=== PATIENT | male | born 1995 ===

== ENCOUNTER 2019-03-03 09:09 | Inpatient (IN) | payer OTHER ==
[2019-03-03] MEDS ORDERED: SODIUM CHLORIDE 0.9% 1000 ML 1,000 ML IV ONE (09:58)
[2019-03-03] MEDS ORDERED: PANTOPRAZOLE 40 MG INJ IV ONE (09:58)
[2019-03-03] MEDS ORDERED: ONDANSETRON 4 MG/2 ML INJ IV ONE (09:58)
[2019-03-03] MEDS ORDERED: MORPHINE 4 MG/1 ML INJ IV ONE (09:58)
[2019-03-03 10:24] LABS: Hematocrit 38.5 % (35.5-45.6); Mean Corpuscular HGB Conc 34 % (32-34); Mean Corpuscular Volume 79 fl (84-94); Platelet Count 261 K/mm3 (140-440); Red Blood Count 4.91 M/mm3 (3.65-5.03); Red Cell Distribution Width 13.9 % (13.2-15.2)
[2019-03-03 10:24] LABS: Bilirubin,Urine NEG (Negative); Blood,Urine NEG (Negative); Color,Urine Straw (Yellow); Urobilinogen,Urine < 2.0 mg/dL (<2.0); WBC,Urine < 1.0 /HPF (0.0-6.0)
--- NOTE | 2019-03-03 10:28 | Emergency Department Report ---
ED Abdominal Pain HPI - General Chief Complaint: Nausea/Vomiting/Diarrhea Stated Complaint: N/V/UPPER STOMACH PAIN Time Seen by Provider: 03/03/19 09:52 Source: patient Mode of arrival: Ambulatory Limitations: Language Barrier - History of Present Illness Initial Comments: Patient is a 23-year-old male presents emergency room with complaints of epigastric abdominal pain that began 2 days ago. He has associated nausea, vomiting, diarrhea. He denies any fever, chills, hematochezia, pus in the stool, hematemesis, any other symptoms. He denies any past medical history or allergies medications. He denies any alcohol use. Maldivian interpretation by patients caregiver Severity scale (0 -10): 10 - Related Data Allergies Allergy/AdvReac Type Severity Reaction Status Date / Time No Known Allergies Allergy Unverified 03/03/19 09:13 ED Review of Systems ROS: Stated complaint: N/V/UPPER STOMACH PAIN Other details as noted in HPI Comment: All other systems reviewed and negative ED Past Medical Hx - Past Medical History Previous Medical History?: No - Social History Smoking Status: Never Smoker ED Physical Exam - General Limitations: No Limitations General appearance: alert, other (appears to be in mild amount of pain and pale) - Head Head exam: Present: atraumatic, normocephalic - Eye Eye exam: Present: normal appearance - ENT ENT exam: Present: mucous membranes moist - Respiratory Respiratory exam: Present: normal lung sounds bilaterally. Absent: respiratory distress, wheezes, rales, rhonchi, stridor, chest wall tenderness, accessory muscle use, decreased breath sounds, prolonged expiratory - Cardiovascular Cardiovascular Exam: Present: regular rate, normal rhythm, normal heart sounds. Absent: systolic murmur, diastolic murmur, rubs, gallop - GI/Abdominal GI/Abdominal exam: Present: soft, tenderness (epigastric, mild LUQ), normal bowel sounds. Absent: distended, guarding, rebound, rigid - Neurological Exam Neurological exam: Present: alert, oriented X3 - Psychiatric Psychiatric exam: Present: normal affect, normal mood - Skin Skin exam: Present: warm, dry, intact ED Course Vital Signs 03/03/19 03/03/19 09:15 12:35 Temperature 98.3 F Pulse Rate 63 Respiratory 18 18 Rate Blood Pressure 170/91 O2 Sat by Pulse 97 97 Oximetry - Reevaluation(s) Reevaluation #1: 03/03/19 11:[address] to make sure patients CT got sent over to radiology, they confirmed it was sent, states that the radiologist is reading it now - Consultations Consultation #1: 03/03/19 12:[address] Kwon, hospitalist, he states he will call back 03/03/19 12:[address] Kwon, hospitalist, he states to consult bathhouse keeper who did his biopsy Dr. Dodson Consultation #2: 03/03/19 12:[address] Emilio Garcia, nephrology who agrees pt needs to be admitted due to worsening renal function and acidosis, states pt could need possible dialysis, will consult on patient while admitted in the hospital 03/03/19 12:[address] Larry, nephrology who states pt never followed with him, advised to consult campaign consultant bathhouse keeper 03/03/19 12:[address] Dean Knowles, who states pt needs dialysis, advised for pt to have permacath or vascular catheter placed and he will consult on patient Consultation #3: 03/03/19 13:[address] Kwon, hospitalist regarding pt, will accept and resume care of patient, will admit to hospital, advised for me to consult vascular surgery ED Medical Decision Making - Lab Data Result diagrams: 03/03/19 09:48 03/03/19 09:54 Lab Results 03/03/19 03/03/19 03/03/19 Range/Units 09:48 09:54 09:54 WBC 12.3 H (4.5-11.0) K/mm3 RBC 4.91 (3.65-5.03) M/mm3 Hgb 13.0 (11.8-15.2) gm/dl Hct 38.5 (35.5-45.6) % MCV 79 L (84-94) fl MCH 26 L (28-32) pg MCHC 34 (32-34) % RDW 13.9 (13.2-15.2) % Plt Count 261 (140-440) K/mm3 Add Manual Diff Complete Total Counted 100 Seg Neutrophils % Plastics Nurse Seg Neuts % (Manual) 95.0 H (40.0-70.0) % Band Neutrophils % 0 % Lymphocytes % (Manual) 3.0 L (13.4-35.0) % Reactive Lymphs % (Man) 0 % Monocytes % (Manual) 1.0 (0.0-7.3) % Eosinophils % (Manual) 0 (0.0-4.3) % Basophils % (Manual) 1.0 (0.0-1.8) % Metamyelocytes % 0 % Myelocytes % 0 % Promyelocytes % 0 % Blast Cells % 0 % Nucleated RBC % Not Reportable Seg Neutrophils # Man 11.7 H (1.8-7.7) K/mm3 Band Neutrophils # 0.0 K/mm3 Lymphocytes # (Manual) 0.4 L (1.2-5.4) K/mm3 Abs React Lymphs (Man) 0.0 K/mm3 Monocytes # (Manual) 0.1 (0.0-0.8) K/mm3 Eosinophils # (Manual) 0.0 (0.0-0.4) K/mm3 Basophils # (Manual) 0.1 (0.0-0.1) K/mm3 Metamyelocytes # 0.0 K/mm3 Myelocytes # 0.0 K/mm3 Promyelocytes # 0.0 K/mm3 Blast Cells # 0.0 K/mm3 WBC Morphology Not Reportable Hypersegmented Neuts Not Reportable Hyposegmented Neuts Not Reportable Hypogranular Neuts Not Reportable Smudge Cells Not Reportable Toxic Granulation Not Reportable Toxic Vacuolation Not Reportable Dohle Bodies Not Reportable Pelger-Huet Anomaly Not Reportable Eunice Rods Not Reportable Platelet Estimate Consistent w auto Clumped Platelets Not Reportable Plt Clumps, EDTA Not Reportable Large Platelets Not Reportable Giant Platelets Not Reportable Platelet Satelliting Not Reportable Plt Morphology Comment Not Reportable RBC Morphology Normal Dimorphic RBCs Not Reportable Polychromasia Not Reportable Hypochromasia Not Reportable Poikilocytosis Not Reportable Anisocytosis Not Reportable Microcytosis Not Reportable Macrocytosis Not Reportable Spherocytes Not Reportable Pappenheimer Bodies Not Reportable Sickle Cells Not Reportable Target Cells Not Reportable Tear Drop Cells Not Reportable Ovalocytes Not Reportable Helmet Cells Not Reportable Leonard-Glen Jean Bodies Not Reportable Jewell Rings Not Reportable Pollo Cells Not Reportable Bite Cells Not Reportable Crenated Cell Not Reportable Elliptocytes Not Reportable Acanthocytes (Spur) Not Reportable Rouleaux Not Reportable Hemoglobin C Crystals Not Reportable Schistocytes Not Reportable Malaria parasites Not Reportable Jose Alejandro Bodies Not Reportable Hem Pathologist Commnt No Sodium 138 (137-145) mmol/L Potassium 3.8 (3.6-5.0) mmol/L Chloride 99.6 (98-107) mmol/L Carbon Dioxide 14 L (22-30) mmol/L Anion Gap 28 mmol/L BUN 88 H (9-20) mg/dL Creatinine 8.1 H (0.8-1.5) mg/dL Estimated GFR 8 ml/min BUN/Creatinine Ratio 11 % Glucose 131 H (75-100) mg/dL Calcium 7.7 L (8.4-10.2) mg/dL Phosphorus (2.5-4.5) mg/dL Magnesium (1.7-2.3) mg/dL Total Bilirubin 0.40 (0.1-1.2) mg/dL AST 10 (5-40) units/L ALT 15 (7-56) units/L Alkaline Phosphatase 132 H (35-129) units/L Total Creatine Kinase (55-170) units/L Total Protein 8.5 H (6.3-8.2) g/dL Albumin 5.0 (3.9-5) g/dL Albumin/Globulin Ratio 1.4 % Lipase (13-60) units/L Urine Color Straw (Yellow) Urine Turbidity Clear (Clear) Urine pH 6.0 (5.0-7.0) Ur Specific Haughton 1.009 (1.003-1.030) Urine Protein >500 (Negative) mg/dL Urine Glucose (UA) 50 (Negative) mg/dL Urine Ketones Neg (Negative) mg/dL Urine Blood Neg (Negative) Urine Nitrite Neg (Negative) Urine Bilirubin Neg (Negative) Urine Urobilinogen < 2.0 (<2.0) mg/dL Ur Leukocyte Esterase Neg (Negative) Urine WBC (Auto) < 1.0 (0.0-6.0) /HPF Urine RBC (Auto) 1.0 (0.0-6.0) /HPF 03/03/19 03/03/19 Range/Units 09:54 09:54 WBC (4.5-11.0) K/mm3 RBC (3.65-5.03) M/mm3 Hgb (11.8-15.2) gm/dl Hct (35.5-45.6) % MCV (84-94) fl MCH (28-32) pg MCHC (32-34) % RDW (13.2-15.2) % Plt Count (140-440) K/mm3 Add Manual Diff Total Counted Seg Neutrophils % Seg Neuts % (Manual) (40.0-70.0) % Band Neutrophils % % Lymphocytes % (Manual) (13.4-35.0) % Reactive Lymphs % (Man) % Monocytes % (Manual) (0.0-7.3) % Eosinophils % (Manual) (0.0-4.3) % Basophils % (Manual) (0.0-1.8) % Metamyelocytes % % Myelocytes % % Promyelocytes % % Blast Cells % % Nucleated RBC % Seg Neutrophils # Man (1.8-7.7) K/mm3 Band Neutrophils # K/mm3 Lymphocytes # (Manual) (1.2-5.4) K/mm3 Abs React Lymphs (Man) K/mm3 Monocytes # (Manual) (0.0-0.8) K/mm3 Eosinophils # (Manual) (0.0-0.4) K/mm3 Basophils # (Manual) (0.0-0.1) K/mm3 Metamyelocytes # K/mm3 Myelocytes # K/mm3 Promyelocytes # K/mm3 Blast Cells # K/mm3 WBC Morphology Hypersegmented Neuts Hyposegmented Neuts Hypogranular Neuts Smudge Cells Toxic Granulation Toxic Vacuolation Dohle Bodies Pelger-Huet Anomaly Eunice Rods Platelet Estimate Clumped Platelets Plt Clumps, EDTA Large Platelets Giant Platelets Platelet Satelliting Plt Morphology Comment RBC Morphology Dimorphic RBCs Polychromasia Hypochromasia Poikilocytosis Anisocytosis Microcytosis Macrocytosis Spherocytes Pappenheimer Bodies Sickle Cells Target Cells Tear Drop Cells Ovalocytes Helmet Cells Leonard-Glen Jean Bodies Jewell Rings Pollo Cells Bite Cells Crenated Cell Elliptocytes Acanthocytes (Spur) Rouleaux Hemoglobin C Crystals Schistocytes Malaria parasites Jose Alejandro Bodies Hem Pathologist Commnt Sodium (137-145) mmol/L Potassium (3.6-5.0) mmol/L Chloride (98-107) mmol/L Carbon Dioxide (22-30) mmol/L Anion Gap mmol/L BUN (9-20) mg/dL Creatinine (0.8-1.5) mg/dL Estimated GFR ml/min BUN/Creatinine Ratio % Glucose (75-100) mg/dL Calcium (8.4-10.2) mg/dL Phosphorus 4.80 H (2.5-4.5) mg/dL Magnesium 1.60 L (1.7-2.3) mg/dL Total Bilirubin (0.1-1.2) mg/dL AST (5-40) units/L ALT (7-56) units/L Alkaline Phosphatase (35-129) units/L Total Creatine Kinase 229 H (55-170) units/L Total Protein (6.3-8.2) g/dL Albumin (3.9-5) g/dL Albumin/Globulin Ratio % Lipase 42 (13-60) units/L Urine Color (Yellow) Urine Turbidity (Clear) Urine pH (5.0-7.0) Ur Specific Haughton (1.003-1.030) Urine Protein (Negative) mg/dL Urine Glucose (UA) (Negative) mg/dL Urine Ketones (Negative) mg/dL Urine Blood (Negative) Urine Nitrite (Negative) Urine Bilirubin (Negative) Urine Urobilinogen (<2.0) mg/dL Ur Leukocyte Esterase (Negative) Urine WBC (Auto) (0.0-6.0) /HPF Urine RBC (Auto) (0.0-6.0) /HPF - Radiology Data Radiology results: report reviewed CHEST 2 VIEWS INDICATION: uremia, elevated WBC. COMPARISON: None. FINDINGS: Support devices: None. Heart: Within normal limits. Lungs/Pleura: No acute air space or interstitial disease. No significant pleural effusion. IMPRESSION: No acute findings. Signer Name: Eladio Chua MD Signed: 03/03/2019 11:29 AM Workstation Name: [id number] Transcribed By: ES Dictated By: Eladio Chua MD Electronically Authenticated By: Eladio Chua MD Signed Date/Time: 03/03/[address] ABDOMEN AND PELVIS WITHOUT CONTRAST HISTORY: Epigastric pain with nausea and vomiting. COMPARISON: 11/14/2018 TECHNIQUE: Routine abdominal and pelvic CT exam performed without contrast. Lack of intravenous contrast limits evaluation of the vascular and solid organs.. All CT scans at this location are performed using CT dose reduction for ALARA by means of automated exposure control. FINDINGS: CT ABDOMEN: Lung Bases: Clear. Liver: Normal. Biliary: Gallbladder and bile ducts. Spleen: Normal. Pancreas: Abnormal. Adrenals: Normal. Kidneys: Small with nondilated renal collecting systems and ureters. No urinary calculi. Lymphatics: No lymphadenopathy. Vasculature: No significant abnormality. Bowel/Peritoneum: A single loop of moderately dilated fluid-filled small bowel in the left upper quadrant. The rest of the small bowel is normal. Normal colon. Numerous tiny calculi in the appendix but no signs of acute appendicitis. No free air and no ascites. CT PELVIC: : No significant abnormality. Lymphatics: No lymphadenopathy. Osseous Structures: No aggressive appearing osseous lesions. Additional Findings: None IMPRESSION: 1. A mild focal ileus of the small bowel in the left upper quadrant. No bowel obstruction or signs of perforation. 2. Tiny calculi of the appendix but no signs of acute appendicitis. 3. No other explanation for abdominal pain. Signer Name: Wesly Mcnamara MD Signed: 03/03/2019 11:49 AM Workstation Name: [id number] Transcribed By: REF Dictated By: WESLY MCNAMARA MD Electronically Authenticated By: WESLY MCNAMARA MD Signed Date/Time: 03/03/19 1149 DD/ 1139 TD/TT: - Medical Decision Making Patient is a 23-year-old male presents emergency room with complaints of epigastric abdominal pain that began 2 days ago. He has associated nausea, vomiting, diarrhea. He denies any fever, chills, hematochezia, pus in the stool, hematemesis, any other symptoms. He denies any past medical history or allergies medications. He denies any alcohol use. vitals with elevated blood pressure, otherwise normal. Labs significant for creatinine 8.1, BUN 88, hypocalcemia 7.7, bicarb 14, magnesium 1.6, phosphorus 4.8. CT abd pelvis without contrast: 1. A mild focal ileus of the small bowel in the left upper quadrant. No bowel obstruction or signs of perforation. 2. Tiny calculi of the appendix but no signs of acute appendicitis. 3. No other explanation for abdominal pain. Discussed case with Dr. Ricks who recommended doing a chest x-ray due to uremia and admitted patient to the hospital. CXR: No acute findings. discussed case with Dr. Dean Knowles, nephrology who recommended emergent dialysis and to have vascular place a permacath or vascular cath. Patient was sent to the [facility] to receive catheter. spoke with Dr. Kwon, hospitalist regarding pt, will accept and resume care of patient, will admit to hospital, - Differential Diagnosis pancreatitis, acute on chronic renal failure, gastritis, PUD, cholecystitis Critical care attestation.: If time is entered above; I have spent that time in minutes in the direct care of this critically ill patient, excluding procedure time. ED Disposition Clinical Impression: Metabolic acidosis, Nausea vomiting and diarrhea, Ileus Acute on chronic renal failure Qualifiers: Acute renal failure type: unspecified Chronic kidney disease stage: stage 5, not on chronic dialysis Qualified Code(s): N17.9 - Acute kidney failure, unspecified Abdominal pain Qualifiers: Abdominal location: unspecified location Qualified Code(s): R10.9 - Unspecified abdominal pain Disposition: -09 OP ADMIT IP TO THIS HOSP Is pt being admited?: Yes Does the pt Need Aspirin: No Condition: Stable
[2019-03-03 10:31] LABS: Protein,Urine >500 mg/dL (Negative)
[2019-03-03 10:39] LABS: Calcium 7.7 mg/dL (8.4-10.2)
[2019-03-03 10:59] LABS: Eosinophils % (Manual) 0 % (0.0-4.3); Platelet Estimate Consistent w Auto; RBC Morphology Normal; Total Cells Counted 100
--- NOTE | 2019-03-03 11:34 | XRay Report ---
CHEST 2 VIEWS INDICATION: uremia, elevated WBC. COMPARISON: None. FINDINGS: Support devices: None. Heart: Within normal limits. Lungs/Pleura: No acute air space or interstitial disease. No significant pleural effusion. IMPRESSION: No acute findings. Signer Name: Eladio Chua MD Signed: 03/03/2019 11:29 AM Workstation Name: [id number]
--- NOTE | 2019-03-03 11:54 | Cat Scan Report ---
CT ABDOMEN AND PELVIS WITHOUT CONTRAST HISTORY: Epigastric pain with nausea and vomiting. COMPARISON: 11/14/2018 TECHNIQUE: Routine abdominal and pelvic CT exam performed without contrast. Lack of intravenous cont rast limits evaluation of the vascular and solid organs.. All CT scans at this location are performed using CT dose reduction for ALARA by means of automated exposure control. FINDINGS: CT ABDOMEN: Lung Bases: Clear. Liver: Normal. Biliary: Gallbladder and bile ducts. Spleen: Normal. Pancreas: Abnormal. Adrenals: Normal. Kidneys: Small with nondilated renal collecting systems and ureters. No urinary calculi. Lymphatics: No lymphadenopathy. Vasculature: No significant abnormality. Bowel/Peritoneum: A single loop of moderately dilated fluid-filled small bowel in the left upper quad rant. The rest of the small bowel is normal. Normal colon. Numerous tiny calculi in the appendix but no signs of acute appendicitis. No free air and no ascites. CT PELVIC: : No significant abnormality. Lymphatics: No lymphadenopathy. Osseous Structures: No aggressive appearing osseous lesions. Additional Findings: None IMPRESSION: 1. A mild focal ileus of the small bowel in the left upper quadrant. No bowel obstruction or signs of perforation. 2. Tiny calculi of the appendix but no signs of acute appendicitis. 3. No other explanation for abdominal pain. Signer Name: Sean Torres MD Signed: 03/03/2019 11:49 AM Workstation Name: [id number]
[2019-03-03] MEDS: CALCIUM CARBONATE 648 MG TAB PO ONE (12:46)
[2019-03-03] MEDS ORDERED: SODIUM CHLORIDE 0.9% 100 ML IV PRN ×2 (13:23→13:46)
[2019-03-03] MEDS ORDERED: MIDAZOLAM 2 MG/2 ML INJ ONE (13:39)
[2019-03-03] MEDS ORDERED: fentaNYL 100 MCG/2 ML INJ ONE (13:40)
[2019-03-03] MEDS ORDERED: HEPARIN/NS 5000 UNIT/500ML 500 ML IR ONE (13:40)
[2019-03-03] MEDS ORDERED: LIDOCAINE 1%/EPINEPHRINE 1:100,000 VIAL (20 ML) INFILTRATI ONE (13:41)
[2019-03-03] MEDS ORDERED: SODIUM CHLORIDE 0.9% 250ML 250 ML ONE (13:44)
--- NOTE | 2019-03-03 14:00 | Consultation ---
History of Present Illness - Reason for Consult Consult date: 03/03/19 Renal Failure - History of Present Illness HPI: 23yo male presents to the ED with worsening abdominal pain with associated N/V/D and labs that demonstrate worsening renal function. Patient diagnosed with CKD approx. 1 month ago per patient with similar symptoms. We have been consulted to place dialysis catheter. ROS: as per HPI PMH: CKD PE: NAD, A&Ox3 non-labored respirations RRR no extremity edema neuro grossly intact extremities warm and well perfused Plan: We will place vascath for dialysis today Medications and Allergies Allergies Allergy/AdvReac Type Severity Reaction Status Date / Time No Known Allergies Allergy Unverified 03/03/19 09:13 Active Meds: Active Medications Calcium Carbonate/Glycine (Calcium Carbonate) 648 mg PO ONCE ONE Stop: 03/04/19 12:01 Last Admin: 03/03/19 12:46 Dose: 648 mg Documented by: Sodium Chloride (Nacl 0.9%) 100 mls @ 999 mls/hr IV ANGELY PRN PRN Reason: Hypotension Sodium Chloride (Nacl 0.9%) 100 mls @ 999 mls/hr IV ANGELY PRN PRN Reason: Hypotension Exam - Constitutional Vitals: Temp Pulse Resp BP Pulse Ox 98.3 F 63 18 170/91 97 03/03/19 09:15 03/03/19 09:15 03/03/19 09:15 03/03/19 09:15 03/03/19 09:15 Results - Labs CBC & Chem 7: 03/03/19 09:48 03/03/19 09:54 Labs: Abnormal lab results 03/03/19 03/03/19 03/03/19 Range/Units 09:48 09:54 09:54 WBC 12.3 H (4.5-11.0) K/mm3 MCV 79 L (84-94) fl MCH 26 L (28-32) pg Seg Neuts % (Manual) 95.0 H (40.0-70.0) % Lymphocytes % (Manual) 3.0 L (13.4-35.0) % Seg Neutrophils # Man 11.7 H (1.8-7.7) K/mm3 Lymphocytes # (Manual) 0.4 L (1.2-5.4) K/mm3 Carbon Dioxide 14 L (22-30) mmol/L BUN 88 H (9-20) mg/dL Creatinine 8.1 H (0.8-1.5) mg/dL Glucose 131 H (75-100) mg/dL Calcium 7.7 L (8.4-10.2) mg/dL Phosphorus (2.5-4.5) mg/dL Magnesium (1.7-2.3) mg/dL Alkaline Phosphatase 132 H (35-129) units/L Total Creatine Kinase 229 H (55-170) units/L Total Protein 8.5 H (6.3-8.2) g/dL 03/03/19 Range/Units 09:54 WBC (4.5-11.0) K/mm3 MCV (84-94) fl MCH (28-32) pg Seg Neuts % (Manual) (40.0-70.0) % Lymphocytes % (Manual) (13.4-35.0) % Seg Neutrophils # Man (1.8-7.7) K/mm3 Lymphocytes # (Manual) (1.2-5.4) K/mm3 Carbon Dioxide (22-30) mmol/L BUN (9-20) mg/dL Creatinine (0.8-1.5) mg/dL Glucose (75-100) mg/dL Calcium (8.4-10.2) mg/dL Phosphorus 4.80 H (2.5-4.5) mg/dL Magnesium 1.60 L (1.7-2.3) mg/dL Alkaline Phosphatase (35-129) units/L Total Creatine Kinase (55-170) units/L Total Protein (6.3-8.2) g/dL
[2019-03-03] MEDS: HEPARIN 10,000 UNITS/10 ML VIAL ONE ×3 (14:15→14:17)
--- NOTE | 2019-03-03 14:35 | Post Operative Note ---
Pre-op diagnosis: Acute Renal Failure Post-op diagnosis: same Procedure: Right IJ Vascath Insertion Monitored Conscious Sedation Anesthesia: MAC, local Surgeon: KEITH SRINIVASAN Estimated blood loss: none Pathology: none Condition: stable Disposition: floor
--- NOTE | 2019-03-03 15:07 | Operative Report ---
STAFF SURGEON: Dr. Christiano Barton. PREOPERATIVE DIAGNOSIS: Acute renal failure. POSTOPERATIVE DIAGNOSIS: Acute renal failure. PROCEDURE PERFORMED: 1. Right IJ Vas-Cath insertion. 2. Monitored conscious sedation for 15 minutes. COMPLICATIONS: None. ESTIMATED BLOOD LOSS: Less than 10 mL. INDICATIONS FOR PROCEDURE: This is a 23-year-old gentleman who presents with a deteriorating renal function and worsening acidosis and the patient's current clinical condition is concerning for a potential need for dialysis initiation, therefore vascular consultation was obtained for a temporary dialysis catheter placement. The patient was explained the risks, benefits, alternatives of the procedure, expressed understanding and wished to proceed. DESCRIPTION OF PROCEDURE: After appropriate consent was obtained, the patient was brought back to the cathode builder, placed on the table in a supine position. The right neck was prepped and draped in the usual sterile fashion with ChloraPrep. Appropriate time-out performed indicating the correct patient, procedure, and site of procedure. I then began the intervention by obtaining percutaneous access of the internal jugular vein, used a micropuncture technique under ultrasound guidance so as to obtain access. Needle was exchanged for a micropuncture sheath. Using Seldinger technique, we then proceeded to place a stiff J wire into the inferior vena cava. The micropuncture sheath was removed. The access site was dilated appropriately. Then, a 15 cm precurved Vas-Cath was then placed over the wire into the level of the SVC right atrial junction. The wire was removed. Both lumens jenise blood appropriately, were flushed with heparinized saline. Appropriate amount of heparin was placed in each port. Catheter was then sutured in place with a 3-0 nylon. Appropriate dressing was placed. The patient tolerated the procedure well, emerged from the conscious sedation and was sent to recovery in stable condition. JOB# [id number] LEANNE/MIKE
[2019-03-03 16:23] LABS: Hepatitis B Surface Antigen Non-Reactive (Negative); Hepatitis C Virus Antibody Non-Reactive (NonReactive)
--- NOTE | 2019-03-03 16:48 | Consultation ---
History of Present Illness - Reason for Consult Consult date: 03/03/19 end stage renal disease Requesting physician: ADELIA QUINTANA - History of Present Illness This is a 23yo M with h/o IgA nephropathy, non-compliant with medical f/u now presenting to [facility] ER with complaints of epigastric abdominal pain that began 2 days ago. He has associated nausea, vomiting, diarrhea. He denies any fever, chills, hematochezia, pus in the stool, hematemesis, any other symptoms. Pt denies recent NSAIDs use IV contrast exposure. Labs showed elevated BUN/Cr at 88/8.1mg/dl along with e/o metabolic acidosis. renal consult is requested for management of ESRD/HD. History obtained by translation of pt's patient care nursing assistant Past History Past Medical History: ESRD Past Surgical History: Other (renal biopsy ) Social history: denies: smoking, alcohol abuse, prescription drug abuse, IV drug use Family history: no significant family history Medications and Allergies Allergies Allergy/AdvReac Type Severity Reaction Status Date / Time No Known Allergies Allergy Unverified 03/03/19 09:13 Active Meds: Active Medications Calcium Carbonate/Glycine (Calcium Carbonate) 648 mg PO ONCE ONE Stop: 03/04/19 12:01 Last Admin: 03/03/19 12:46 Dose: 648 mg Documented by: Sodium Chloride (Nacl 0.9%) 100 mls @ 999 mls/hr IV ANGELY PRN PRN Reason: Hypotension Sodium Chloride (Nacl 0.9%) 100 mls @ 999 mls/hr IV ANGELY PRN PRN Reason: Hypotension Review of Systems All systems: negative Constitutional: anorexia, fatigue, weakness, malaise Exam - Vital Signs Vital signs: Vital Signs Temp Pulse Resp BP Pulse Ox 98.3 F 63 18 170/91 97 03/03/19 09:15 03/03/19 09:15 03/03/19 09:15 03/03/19 09:15 03/03/19 09:15 - General Appearance General appearance: well-developed, well-nourished, appears stated age EENT: ATNC, PERRL, mucous membranes moist Neck: Present: neck supple Respiratory: Clear to Ascultation Heart: regular, S1S2 Gastrointestinal: Present: normoactive bowel sounds Integumentary: no rash Neurologic: no focal deficit, alert and oriented x3, strength 5/5, CN 3-12 intact Psychiatric: mood/affect appropriate, cooperative Results - Lab Results 03/03/19 09:48 03/03/19 09:54 Most recent lab results Calcium 7.7 mg/dL (8.4-10.2) L 03/03/19 09:54 Phosphorus 4.80 mg/dL (2.5-4.5) H 03/03/19 09:54 Magnesium 1.60 mg/dL (1.7-2.3) L 03/03/19 09:54 Assessment and Plan - Patient Problems (1) ESRD (end stage renal disease) Current Visit: Yes Status: Acute Plan to address problem: with uremic symptoms, vascular surgery consult for vascasth/permcath. Will arrange HD thereafter. (2) Metabolic acidosis Current Visit: Yes Status: Acute Plan to address problem: to be corrected with HD (3) Nausea vomiting and diarrhea Current Visit: Yes Status: Acute Plan to address problem: likely due to uremic symptoms in the setting of advanced renal failure/ESRD
[2019-03-03] MEDS ORDERED: oxyCODONE /ACETAMINOPHEN 5-325MG TAB PO PRN (19:37)
[2019-03-03] MEDS ORDERED: ACETAMINOPHEN 325 MG TAB PO PRN (19:37)
[2019-03-03] MEDS ORDERED: HYDROmorphone 1 MG/1 ML INJ IV PRN (19:37)
--- NOTE | 2019-03-03 19:37 | History and Physical Report ---
History of Present Illness Date of examination: 03/03/19 Date of admission: 03/03/19 13:01 Chief complaint: Abdominal pain 3 days Vomiting for 3 days History of present illness: 22-year-old Arabic-speaking male comes in for abdominal pain that began 2 days ago associated with nausea and vomiting. Vomited 3-4 times. Pain is about 6 on a scale of 1-10 intermittent in nature. Sharp. No exacerbating or precipitating factors. Patient does not have any history of renal failure or hypertension or any other medical problems. In the emergency room patient had a high creatinine level. Patient apparently had biopsy couple months ago and is not sure why he had a biopsy. No fever or chills. No recent travel. No weight loss. Not on any medications. Past Medical History None Surgical history None Family history noncontributory Social History Smoking Status: Never Smoker Review of Systems ROS: Stated complaint: N/V/UPPER STOMACH PAIN Other details as noted in HPI, Nausea vomiting and epigastric pain for 3-4 days All other systems reviewed and negative Past History Past Medical History: ESRD Past Surgical History: Other (renal biopsy ) Social history: denies: smoking, alcohol abuse, prescription drug abuse, IV drug use Family history: no significant family history Medications and Allergies Allergies Allergy/AdvReac Type Severity Reaction Status Date / Time No Known Allergies Allergy Unverified 03/03/19 09:13 Active Meds: Active Medications Calcium Carbonate/Glycine (Calcium Carbonate) 648 mg PO ONCE ONE Stop: 03/04/19 12:01 Last Admin: 03/03/19 12:46 Dose: 648 mg Documented by: Sodium Chloride (Nacl 0.9%) 100 mls @ 999 mls/hr IV ANGELY PRN PRN Reason: Hypotension Sodium Chloride (Nacl 0.9%) 100 mls @ 999 mls/hr IV ANGELY PRN PRN Reason: Hypotension Exam - Constitutional Vitals: Temp Pulse Resp BP Pulse Ox 98.1 F 61 16 171/99 98 03/03/19 19:18 03/03/19 19:18 03/03/19 19:18 03/03/19 19:18 03/03/19 19:18 General appearance: Present: no acute distress, well-nourished - EENT Eyes: Present: PERRL ENT: hearing intact, clear oral mucosa - Neck Neck: Present: supple, normal ROM - Respiratory Respiratory effort: normal Respiratory: bilateral: CTA - Cardiovascular Heart rate: 88 Rhythm: regular Heart Sounds: Present: S1 & S2. Absent: rub, click - Extremities Extremities: no ischemia, pulses intact ( and service), pulses symmetrical, No edema Peripheral Pulses: within normal limits - Abdominal General gastrointestinal: Present: soft, non-tender, non-distended, normal bowel sounds Localized gastrointestinal: surgical scar: diffuse Male genitourinary: Present: normal - Integumentary Integumentary: Present: clear, warm, dry - Musculoskeletal Musculoskeletal: gait normal, strength equal bilaterally - Psychiatric Psychiatric: appropriate mood/affect, intact judgment & insight - Neurologic Neurologic: CNII-XII intact, moves all extremities - Allied Health Allied health notes reviewed: nursing, case management Results - Labs CBC & Chem 7: 03/03/19 09:48 03/03/19 09:54 Labs: Laboratory Last Values WBC 12.3 K/mm3 (4.5-11.0) H 03/03/19 09:48 RBC 4.91 M/mm3 (3.65-5.03) 03/03/19 09:48 Hgb 13.0 gm/dl (11.8-15.2) 03/03/19 09:48 Hct 38.5 % (35.5-45.6) 03/03/19 09:48 MCV 79 fl (84-94) L 03/03/19 09:48 MCH 26 pg (28-32) L 03/03/19 09:48 MCHC 34 % (32-34) 03/03/19 09:48 RDW 13.9 % (13.2-15.2) 03/03/19 09:48 Plt Count 261 K/mm3 (140-440) 03/03/19 09:48 Add Manual Diff Complete 03/03/19 09:48 Total Counted 100 03/03/19 09:48 Seg Neutrophils % Radiographer Technologist 03/03/19 09:48 Seg Neuts % (Manual) 95.0 % (40.0-70.0) H 03/03/19 09:48 Band Neutrophils % 0 % 03/03/19 09:48 Lymphocytes % (Manual) 3.0 % (13.4-35.0) L 03/03/19 09:48 Reactive Lymphs % (Man) 0 % 03/03/19 09:48 Monocytes % (Manual) 1.0 % (0.0-7.3) 03/03/19 09:48 Eosinophils % (Manual) 0 % (0.0-4.3) 03/03/19 09:48 Basophils % (Manual) 1.0 % (0.0-1.8) 03/03/19 09:48 Metamyelocytes % 0 % 03/03/19 09:48 Myelocytes % 0 % 03/03/19 09:48 Promyelocytes % 0 % 03/03/19 09:48 Blast Cells % 0 % 03/03/19 09:48 Nucleated RBC % Not Reportable 03/03/19 09:48 Seg Neutrophils # Man 11.7 K/mm3 (1.8-7.7) H 03/03/19 09:48 Band Neutrophils # 0.0 K/mm3 03/03/19 09:48 Lymphocytes # (Manual) 0.4 K/mm3 (1.2-5.4) L 03/03/19 09:48 Abs React Lymphs (Man) 0.0 K/mm3 03/03/19 09:48 Monocytes # (Manual) 0.1 K/mm3 (0.0-0.8) 03/03/19 09:48 Eosinophils # (Manual) 0.0 K/mm3 (0.0-0.4) 03/03/19 09:48 Basophils # (Manual) 0.1 K/mm3 (0.0-0.1) 03/03/19 09:48 Metamyelocytes # 0.0 K/mm3 03/03/19 09:48 Myelocytes # 0.0 K/mm3 03/03/19 09:48 Promyelocytes # 0.0 K/mm3 03/03/19 09:48 Blast Cells # 0.0 K/mm3 03/03/19 09:48 WBC Morphology Not Reportable 03/03/19 09:48 Hypersegmented Neuts Not Reportable 03/03/19 09:48 Hyposegmented Neuts Not Reportable 03/03/19 09:48 Hypogranular Neuts Not Reportable 03/03/19 09:48 Smudge Cells Not Reportable 03/03/19 09:48 Toxic Granulation Not Reportable 03/03/19 09:48 Toxic Vacuolation Not Reportable 03/03/19 09:48 Dohle Bodies Not Reportable 03/03/19 09:48 Pelger-Huet Anomaly Not Reportable 03/03/19 09:48 Eunice Rods Not Reportable 03/03/19 09:48 Platelet Estimate Consistent w auto 03/03/19 09:48 Clumped Platelets Not Reportable 03/03/19 09:48 Plt Clumps, EDTA Not Reportable 03/03/19 09:48 Large Platelets Not Reportable 03/03/19 09:48 Giant Platelets Not Reportable 03/03/19 09:48 Platelet Satelliting Not Reportable 03/03/19 09:48 Plt Morphology Comment Not Reportable 03/03/19 09:48 RBC Morphology Normal 03/03/19 09:48 Dimorphic RBCs Not Reportable 03/03/19 09:48 Polychromasia Not Reportable 03/03/19 09:48 Hypochromasia Not Reportable 03/03/19 09:48 Poikilocytosis Not Reportable 03/03/19 09:48 Anisocytosis Not Reportable 03/03/19 09:48 Microcytosis Not Reportable 03/03/19 09:48 Macrocytosis Not Reportable 03/03/19 09:48 Spherocytes Not Reportable 03/03/19 09:48 Pappenheimer Bodies Not Reportable 03/03/19 09:48 Sickle Cells Not Reportable 03/03/19 09:48 Target Cells Not Reportable 03/03/19 09:48 Tear Drop Cells Not Reportable 03/03/19 09:48 Ovalocytes Not Reportable 03/03/19 09:48 Helmet Cells Not Reportable 03/03/19 09:48 Leonard-Girard Bodies Not Reportable 03/03/19 09:48 [place] Rings Not Reportable 03/03/19 09:48 [place] Cells Not Reportable 03/03/19 09:48 Bite Cells Not Reportable 03/03/19 09:48 Crenated Cell Not Reportable 03/03/19 09:48 Elliptocytes Not Reportable 03/03/19 09:48 Acanthocytes (Spur) Not Reportable 03/03/19 09:48 Rouleaux Not Reportable 03/03/19 09:48 Hemoglobin C Crystals Not Reportable 03/03/19 09:48 Schistocytes Not Reportable 03/03/19 09:48 Malaria parasites Not Reportable 03/03/19 09:48 Jose Alejandro Bodies Not Reportable 03/03/19 09:48 Hem Pathologist Commnt No 03/03/19 09:48 Sodium 138 mmol/L (137-145) 03/03/19 09:54 Potassium 3.8 mmol/L (3.6-5.0) 03/03/19 09:54 Chloride 99.6 mmol/L (98-107) 03/03/19 09:54 Carbon Dioxide 14 mmol/L (22-30) L 03/03/19 09:54 Anion Gap 28 mmol/L 03/03/19 09:54 BUN 88 mg/dL (9-20) H 03/03/19 09:54 Creatinine 8.1 mg/dL (0.8-1.5) H 03/03/19 09:54 Estimated GFR 8 ml/min 03/03/19 09:54 BUN/Creatinine Ratio 11 % 03/03/19 09:54 Glucose 131 mg/dL (75-100) H 03/03/19 09:54 Calcium 7.7 mg/dL (8.4-10.2) L 03/03/19 09:54 Phosphorus 4.80 mg/dL (2.5-4.5) H 03/03/19 09:54 Magnesium 1.60 mg/dL (1.7-2.3) L 03/03/19 09:54 Total Bilirubin 0.40 mg/dL (0.1-1.2) 03/03/19 09:54 AST 10 units/L (5-40) 03/03/19 09:54 ALT 15 units/L (7-56) 03/03/19 09:54 Alkaline Phosphatase 132 units/L (35-129) H 03/03/19 09:54 Total Creatine Kinase 229 units/L (55-170) H 03/03/19 09:54 Total Protein 8.5 g/dL (6.3-8.2) H 03/03/19 09:54 Albumin 5.0 g/dL (3.9-5) 03/03/19 09:54 Albumin/Globulin Ratio 1.4 % 03/03/19 09:54 Lipase 42 units/L (13-60) 03/03/19 09:54 Urine Color Straw (Yellow) 03/03/19 09:54 Urine Turbidity Clear (Clear) 03/03/19 09:54 Urine pH 6.0 (5.0-7.0) 03/03/19 09:54 Ur Specific [place] 1.009 (1.003-1.030) 03/03/19 09:54 Urine Protein >500 mg/dL (Negative) 03/03/19 09:54 Urine Glucose (UA) 50 mg/dL (Negative) 03/03/19 09:54 Urine Ketones Neg mg/dL (Negative) 03/03/19 09:54 Urine Blood Neg (Negative) 03/03/19 09:54 Urine Nitrite Neg (Negative) 03/03/19 09:54 Urine Bilirubin Neg (Negative) 03/03/19 09:54 Urine Urobilinogen < 2.0 mg/dL (<2.0) 03/03/19 09:54 Ur Leukocyte Esterase Neg (Negative) 03/03/19 09:54 Urine WBC (Auto) < 1.0 /HPF (0.0-6.0) 03/03/19 09:54 Urine RBC (Auto) 1.0 /HPF (0.0-6.0) 03/03/19 09:54 Hepatitis A IgM Ab Non-reactive (NonReactive) 03/03/19 Unknown Hep Bs Antigen Non-reactive (Negative) 03/03/19 Unknown Hep B Core IgM Ab Non-reactive (NonReactive) 03/03/19 Unknown Hepatitis C Antibody Non-reactive (NonReactive) 03/03/19 Unknown Short CBC 03/03/19 Range/Units 09:48 WBC 12.3 H (4.5-11.0) K/mm3 Hgb 13.0 (11.8-15.2) gm/dl Hct 38.5 (35.5-45.6) % Plt Count 261 (140-440) K/mm3 BMP 03/03/19 09:54 Sodium 138 Potassium 3.8 Chloride 99.6 Carbon Dioxide 14 L BUN 88 H Creatinine 8.1 H Glucose 131 H Calcium 7.7 L Cardiac Enzymes 03/03/19 Range/Units 09:54 Total Creatine Kinase 229 H (55-170) units/L Liver Function 03/03/19 Range/Units 09:54 Total Bilirubin 0.40 (0.1-1.2) mg/dL AST 10 (5-40) units/L ALT 15 (7-56) units/L Alkaline Phosphatase 132 H (35-129) units/L Albumin 5.0 (3.9-5) g/dL Urine 03/03/19 Range/Units 09:54 Urine Color Straw (Yellow) Urine pH 6.0 (5.0-7.0) Ur Specific [place] 1.009 (1.003-1.030) Urine Protein >500 (Negative) mg/dL Urine Glucose (UA) 50 (Negative) mg/dL - Imaging and Cardiology Chest x-ray: report reviewed (NAF) CT scan - abdomen: report reviewed Imaging and Cardiology: CT Abdomen IMPRESSION: 1. A mild focal ileus of the small bowel in the left upper quadrant. No bowel obstruction or signs of perforation. 2. Tiny calculi of the appendix but no signs of acute appendicitis. 3. No other explanation for abdominal pain. Assessment and Plan Advance Directives: Yes (Full code) VTE prophylaxis?: Chemical Plan of care discussed with patient/family: Yes - Patient Problems (1) ESRD (end stage renal disease) Current Visit: Yes Status: Chronic Plan to address problem: ) Patient needs vascath and hemodialysis Vascular surgery consulted and nephrology consulted Patient' states that he does not have legal status Case management involved regarding social issues (2) Metabolic acidosis Current Visit: Yes Status: Acute Plan to address problem: Secondary to end-stage renal disease Needs hemodialysis on a regular basis and nephrology follow-up (3) Abdominal pain Current Visit: Yes Status: Acute Qualifiers: Abdominal location: unspecified location Qualified Code(s): R10.9 - Unspecified abdominal pain Plan to address problem: IV Protonix and symptomatic treatment (4) DVT prophylaxis Current Visit: Yes Status: Acute Plan to address problem: On heparin 5000 every 12 and GI prophylaxis
[2019-03-03] MEDS: FAMOTIDINE 10 MG TAB PO SCH (22:53)
[2019-03-04] MEDS: ONDANSETRON 4 MG/2 ML INJ IV PRN ×3 (04:26→21:51)
[2019-03-04] MEDS ORDERED: SODIUM CHLORIDE 0.9% 100 ML IV PRN (08:05)
[2019-03-04] MEDS: FAMOTIDINE 10 MG TAB PO SCH ×2 (09:17→21:51)
[2019-03-04 09:38] LABS: Basophils % (Auto) 0.1 % (0.0-1.8); Hematocrit 36.9 % (35.5-45.6); Hemoglobin 12.6 gm/dl (11.8-15.2); Lymphocytes # (Auto) 0.9 K/mm3 (1.2-5.4); Lymphocytes % (Auto) 7.5 % (13.4-35.0); Mean Corpuscular HGB Conc 34 % (32-34); Mean Corpuscular Volume 78 fl (84-94); Monocytes # (Auto) 0.5 K/mm3 (0.0-0.8); Monocytes % (Auto) 4.8 % (0.0-7.3); Platelet Count 242 K/mm3 (140-440); Red Blood Count 4.74 M/mm3 (3.65-5.03); Red Cell Distribution Width 13.5 % (13.2-15.2)
[2019-03-04 10:05] LABS: Albumin 4.8 g/dL (3.9-5); Calcium 8.3 mg/dL (8.4-10.2)
[2019-03-04] MEDS ORDERED: SODIUM CHLORIDE*PRIMING MACHINE ONLY FOR DIALYSIS MC ONE (10:52)
--- NOTE | 2019-03-04 11:16 | Progress Note ---
Assessment and Plan Assessment and plan: New ESRD on HD -Status post vascath placement -Nephrology following New hypertension -Patient started on Amlodipine, will adjust as needed Metabolic acidosis -Secondary to the CKD -Level improving, will monitor Hypokalemia -We'll monitor level Hypomagnesemia -We'll monitor level Leukocytosis -Likely reactive, improving -Ua neg DVT prophylaxis with heparin Disposition: Patient will need outpatient hemodialysis chair, wrapper caser notified. History Interval history: Patient reports feeling better today. He denies current abdominal pain, nausea or vomiting. Hospitalist Physical - Constitutional Vitals: Temp Pulse Resp BP Pulse Ox 97.9 F 77 17 157/93 99 03/04/19 05:45 03/04/19 05:45 03/04/19 05:45 03/04/19 05:45 03/04/19 05:45 General appearance: Present: no acute distress, well-nourished - EENT Eyes: Present: PERRL, EOM intact ENT: hearing intact, clear oral mucosa - Neck Neck: Present: supple - Respiratory Respiratory effort: normal Respiratory: bilateral: CTA - Cardiovascular Rhythm: regular Heart Sounds: Present: S1 & S2 - Extremities Extremities: No edema - Abdominal General gastrointestinal: soft, non-tender, normal bowel sounds - Integumentary Integumentary: Present: warm, dry - Psychiatric Psychiatric: appropriate mood/affect - Neurologic Neurologic: CNII-XII intact Results - Labs CBC & Chem 7: 03/04/19 08:57 03/04/19 08:57 Labs: Laboratory Last Values WBC 11.4 K/mm3 (4.5-11.0) H 03/04/19 08:57 RBC 4.74 M/mm3 (3.65-5.03) 03/04/19 08:57 Hgb 12.6 gm/dl (11.8-15.2) 03/04/19 08:57 Hct 36.9 % (35.5-45.6) 03/04/19 08:57 MCV 78 fl (84-94) L 03/04/19 08:57 MCH 27 pg (28-32) L 03/04/19 08:57 MCHC 34 % (32-34) 03/04/19 08:57 RDW 13.5 % (13.2-15.2) 03/04/19 08:57 Plt Count 242 K/mm3 (140-440) 03/04/19 08:57 Lymph % (Auto) 7.5 % (13.4-35.0) L 03/04/19 08:57 Morgan % (Auto) 4.8 % (0.0-7.3) 03/04/19 08:57 Eos % (Auto) 0.0 % (0.0-4.3) 03/04/19 08:57 Baso % (Auto) 0.1 % (0.0-1.8) 03/04/19 08:57 Lymph # 0.9 K/mm3 (1.2-5.4) L 03/04/19 08:57 Morgan # 0.5 K/mm3 (0.0-0.8) 03/04/19 08:57 Eos # 0.0 K/mm3 (0.0-0.4) 03/04/19 08:57 Baso # 0.0 K/mm3 (0.0-0.1) 03/04/19 08:57 Add Manual Diff Complete 03/03/19 09:48 Total Counted 100 03/03/19 09:48 Seg Neutrophils % 87.6 % (40.0-70.0) H 03/04/19 08:57 Seg Neuts % (Manual) 95.0 % (40.0-70.0) H 03/03/19 09:48 Band Neutrophils % 0 % 03/03/19 09:48 Lymphocytes % (Manual) 3.0 % (13.4-35.0) L 03/03/19 09:48 Reactive Lymphs % (Man) 0 % 03/03/19 09:48 Monocytes % (Manual) 1.0 % (0.0-7.3) 03/03/19 09:48 Eosinophils % (Manual) 0 % (0.0-4.3) 03/03/19 09:48 Basophils % (Manual) 1.0 % (0.0-1.8) 03/03/19 09:48 Metamyelocytes % 0 % 03/03/19 09:48 Myelocytes % 0 % 03/03/19 09:48 Promyelocytes % 0 % 03/03/19 09:48 Blast Cells % 0 % 03/03/19 09:48 Nucleated RBC % Not Reportable 03/03/19 09:48 Seg Neutrophils # 10.0 K/mm3 (1.8-7.7) H 03/04/19 08:57 Seg Neutrophils # Man 11.7 K/mm3 (1.8-7.7) H 03/03/19 09:48 Band Neutrophils # 0.0 K/mm3 03/03/19 09:48 Lymphocytes # (Manual) 0.4 K/mm3 (1.2-5.4) L 03/03/19 09:48 Abs React Lymphs (Man) 0.0 K/mm3 03/03/19 09:48 Monocytes # (Manual) 0.1 K/mm3 (0.0-0.8) 03/03/19 09:48 Eosinophils # (Manual) 0.0 K/mm3 (0.0-0.4) 03/03/19 09:48 Basophils # (Manual) 0.1 K/mm3 (0.0-0.1) 03/03/19 09:48 Metamyelocytes # 0.0 K/mm3 03/03/19 09:48 Myelocytes # 0.0 K/mm3 03/03/19 09:48 Promyelocytes # 0.0 K/mm3 03/03/19 09:48 Blast Cells # 0.0 K/mm3 03/03/19 09:48 WBC Morphology Not Reportable 03/03/19 09:48 Hypersegmented Neuts Not Reportable 03/03/19 09:48 Hyposegmented Neuts Not Reportable 03/03/19 09:48 Hypogranular Neuts Not Reportable 03/03/19 09:48 Smudge Cells Not Reportable 03/03/19 09:48 Toxic Granulation Not Reportable 03/03/19 09:48 Toxic Vacuolation Not Reportable 03/03/19 09:48 Dohle Bodies Not Reportable 03/03/19 09:48 Pelger-Huet Anomaly Not Reportable 03/03/19 09:48 Eunice Rods Not Reportable 03/03/19 09:48 Platelet Estimate Consistent w auto 03/03/19 09:48 Clumped Platelets Not Reportable 03/03/19 09:48 Plt Clumps, EDTA Not Reportable 03/03/19 09:48 Large Platelets Not Reportable 03/03/19 09:48 Giant Platelets Not Reportable 03/03/19 09:48 Platelet Satelliting Not Reportable 03/03/19 09:48 Plt Morphology Comment Not Reportable 03/03/19 09:48 RBC Morphology Normal 03/03/19 09:48 Dimorphic RBCs Not Reportable 03/03/19 09:48 Polychromasia Not Reportable 03/03/19 09:48 Hypochromasia Not Reportable 03/03/19 09:48 Poikilocytosis Not Reportable 03/03/19 09:48 Anisocytosis Not Reportable 03/03/19 09:48 Microcytosis Not Reportable 03/03/19 09:48 Macrocytosis Not Reportable 03/03/19 09:48 Spherocytes Not Reportable 03/03/19 09:48 Pappenheimer Bodies Not Reportable 03/03/19 09:48 Sickle Cells Not Reportable 03/03/19 09:48 Target Cells Not Reportable 03/03/19 09:48 Tear Drop Cells Not Reportable 03/03/19 09:48 Ovalocytes Not Reportable 03/03/19 09:48 Helmet Cells Not Reportable 03/03/19 09:48 Leonard-Beckwourth Bodies Not Reportable 03/03/19 09:48 [place] Rings Not Reportable 03/03/19 09:48 [place] Cells Not Reportable 03/03/19 09:48 Bite Cells Not Reportable 03/03/19 09:48 Crenated Cell Not Reportable 03/03/19 09:48 Elliptocytes Not Reportable 03/03/19 09:48 Acanthocytes (Spur) Not Reportable 03/03/19 09:48 Rouleaux Not Reportable 03/03/19 09:48 Hemoglobin C Crystals Not Reportable 03/03/19 09:48 Schistocytes Not Reportable 03/03/19 09:48 Malaria parasites Not Reportable 03/03/19 09:48 Jose Alejandro Bodies Not Reportable 03/03/19 09:48 Hem Pathologist Commnt No 03/03/19 09:48 Sodium 138 mmol/L (137-145) 03/04/19 08:57 Potassium 3.5 mmol/L (3.6-5.0) L 03/04/19 08:57 Chloride 94.2 mmol/L (98-107) L 03/04/19 08:57 Carbon Dioxide 17 mmol/L (22-30) L 03/04/19 08:57 Anion Gap 30 mmol/L 03/04/19 08:57 BUN 59 mg/dL (9-20) H 03/04/19 08:57 Creatinine 7.0 mg/dL (0.8-1.5) H 03/04/19 08:57 Estimated GFR 10 ml/min 03/04/19 08:57 BUN/Creatinine Ratio 8 % 03/04/19 08:57 Glucose 132 mg/dL (75-100) H 03/04/19 08:57 Hemoglobin A1c 5.4 % (4-6) 03/03/19 09:48 Calcium 8.3 mg/dL (8.4-10.2) L 03/04/19 08:57 Phosphorus 4.80 mg/dL (2.5-4.5) H 03/03/19 09:54 Magnesium 1.60 mg/dL (1.7-2.3) L 03/03/19 09:54 Total Bilirubin 0.60 mg/dL (0.1-1.2) 03/04/19 08:57 AST 10 units/L (5-40) 03/04/19 08:57 ALT 13 units/L (7-56) 03/04/19 08:57 Alkaline Phosphatase 122 units/L (35-129) 03/04/19 08:57 Total Creatine Kinase 229 units/L (55-170) H 03/03/19 09:54 Total Protein 8.1 g/dL (6.3-8.2) 03/04/19 08:57 Albumin 4.8 g/dL (3.9-5) 03/04/19 08:57 Albumin/Globulin Ratio 1.5 % 03/04/19 08:57 Lipase 42 units/L (13-60) 03/03/19 09:54 Urine Color Straw (Yellow) 03/03/19 09:54 Urine Turbidity Clear (Clear) 03/03/19 09:54 Urine pH 6.0 (5.0-7.0) 03/03/19 09:54 Ur Specific [place] 1.009 (1.003-1.030) 03/03/19 09:54 Urine Protein >500 mg/dL (Negative) 03/03/19 09:54 Urine Glucose (UA) 50 mg/dL (Negative) 03/03/19 09:54 Urine Ketones Neg mg/dL (Negative) 03/03/19 09:54 Urine Blood Neg (Negative) 03/03/19 09:54 Urine Nitrite Neg (Negative) 03/03/19 09:54 Urine Bilirubin Neg (Negative) 03/03/19 09:54 Urine Urobilinogen < 2.0 mg/dL (<2.0) 03/03/19 09:54 Ur Leukocyte Esterase Neg (Negative) 03/03/19 09:54 Urine WBC (Auto) < 1.0 /HPF (0.0-6.0) 03/03/19 09:54 Urine RBC (Auto) 1.0 /HPF (0.0-6.0) 03/03/19 09:54 Hepatitis A IgM Ab Non-reactive (NonReactive) 03/03/19 Unknown Hep Bs Antigen Non-reactive (Negative) 03/03/19 Unknown Hep B Core IgM Ab Non-reactive (NonReactive) 03/03/19 Unknown Hepatitis C Antibody Non-reactive (NonReactive) 03/03/19 Unknown Active Medications - Current Medications Current Medications: Generic Name Dose Route Start Last Admin Trade Name Freq PRN Reason Stop Dose Admin Acetaminophen 650 mg 03/03/19 19:37 Tylenol PO Q4H PRN Pain MILD(1-3)/Fever >100.5/HERMOSILLO Calcium Carbonate/Glycine 648 mg 03/04/19 12:00 03/03/19 12:46 Calcium Carbonate PO 03/04/19 12:01 648 mg ONCE ONE Administration Famotidine 10 mg 03/03/19 22:00 03/04/19 09:17 Pepcid PO 10 mg BID SEBLE Administration Hydromorphone HCl 0.5 mg 03/03/19 19:37 Dilaudid IV Q3H PRN Pain , Severe (7-10) Sodium Chloride 100 mls @ 999 mls/hr 03/04/19 08:05 Nacl 0.9% IV ANGELY PRN Hypotension Ondansetron HCl 4 mg 03/03/19 19:37 03/04/19 04:26 Zofran IV 4 mg Q8H PRN Administration Nausea And Vomiting Oxycodone/Acetaminophen 1 tab 03/03/19 19:37 Percocet 5/325 PO Q6H PRN Pain, Moderate (4-6) Sodium Chloride 10 ml 03/03/19 22:00 03/04/19 09:17 Sodium Chloride Flush Syringe 10 Ml IV 10 ml BID SEBLE Administration Sodium Chloride 10 ml 03/03/19 19:37 Sodium Chloride Flush Syringe 10 Ml IV PRN PRN LINE FLUSH
--- NOTE | 2019-03-04 13:10 | Progress Note ---
Assessment and Plan - Patient Problems (1) ESRD (end stage renal disease) Current Visit: Yes Status: Chronic Plan to address problem: initiated HD via Rt IJ vascath. cont HD on MWF schedule. pt will need permcath prior to discharge. outpatient HD arrangement as per case management. (2) Metabolic acidosis Current Visit: Yes Status: Acute Plan to address problem: to be corrected with HD (3) Nausea vomiting and diarrhea Current Visit: Yes Status: Acute Plan to address problem: likely due to uremic symptoms in the setting of advanced renal failure/ESRD Subjective Date of service: 03/04/19 Principal diagnosis: ESRD Interval history: pt examined during HD, tolerating HD well without acute complaints. awake, alert, in NAD Objective - Vital Signs Vital signs: Vital Signs - 12hr 03/04/19 03/04/19 03/04/19 05:45 09:38 09:50 Temperature 97.9 F 97.8 F Pulse Rate 77 69 70 Respiratory 17 16 Rate Blood Pressure 157/93 176/108 185/99 O2 Sat by Pulse 99 Oximetry 03/04/19 03/04/19 03/04/19 10:00 10:15 10:30 Temperature Pulse Rate 69 63 63 Respiratory Rate Blood Pressure 179/105 188/115 181/97 O2 Sat by Pulse Oximetry 03/04/19 03/04/19 03/04/19 10:45 11:00 11:15 Temperature Pulse Rate 65 64 63 Respiratory Rate Blood Pressure 205/109 183/107 167/96 O2 Sat by Pulse Oximetry 03/04/19 03/04/19 11:30 11:45 Temperature Pulse Rate 61 68 Respiratory Rate Blood Pressure 161/98 145/74 O2 Sat by Pulse Oximetry - General Appearance General appearance: well-developed, well-nourished, appears stated age EENT: ATNC, PERRL, mucous membranes moist Neck: no JVD Respiratory: Present: Clear to Ascultation Cardiology: regular, S1S2 Gastrointestinal: normoactive bowel sounds Integumentary: no rash, other (no edema ) Neurologic: no focal deficit, alert and oriented x3, strength 5/5, CN 3-12 intact Psychiatric: mood/affect appropriate, cooperative - Lab 03/04/19 08:57 03/04/19 08:57 Most recent lab results Calcium 8.3 mg/dL (8.4-10.2) L 03/04/19 08:57 Phosphorus 4.80 mg/dL (2.5-4.5) H 03/03/19 09:54 Magnesium 1.60 mg/dL (1.7-2.3) L 03/03/19 09:54 Medications & Allergies - Medications Allergies/Adverse Reactions: Allergies No Known Allergies Allergy (Unverified 03/03/19 09:13) Active Medications: Generic Name Dose Route Start Last Admin Trade Name Freq PRN Reason Stop Dose Admin Acetaminophen 650 mg 03/03/19 19:37 Tylenol PO Q4H PRN Pain MILD(1-3)/Fever >100.5/HERMOSILLO Amlodipine Besylate 5 mg 03/04/19 12:00 Amlodipine PO QDAY SEBLE Famotidine 10 mg 03/03/19 22:00 03/04/19 09:17 Pepcid PO 10 mg BID SEBLE Administration Heparin Sodium (Porcine) 5,000 unit 03/04/19 14:00 Heparin SUB-Q Q8HR SEBLE Hydromorphone HCl 0.5 mg 03/03/19 19:37 Dilaudid IV Q3H PRN Pain , Severe (7-10) Sodium Chloride 100 mls @ 999 mls/hr 03/04/19 08:05 Nacl 0.9% IV ANGELY PRN Hypotension Ondansetron HCl 4 mg 03/03/19 19:37 03/04/19 04:26 Zofran IV 4 mg Q8H PRN Administration Nausea And Vomiting Oxycodone/Acetaminophen 1 tab 03/03/19 19:37 Percocet 5/325 PO Q6H PRN Pain, Moderate (4-6) Sodium Chloride 10 ml 03/03/19 22:00 03/04/19 09:17 Sodium Chloride Flush Syringe 10 Ml IV 10 ml BID SEBLE Administration Sodium Chloride 10 ml 03/03/19 19:37 Sodium Chloride Flush Syringe 10 Ml IV PRN PRN LINE FLUSH
[2019-03-04] MEDS: amLODIPine 5 MG TAB PO SCH (14:30)
[2019-03-04] MEDS: HEPARIN 5,000 UNIT/1 ML VIAL SUB-Q SCH ×2 (14:30→21:52)
[2019-03-04] MEDS: CALCIUM CARBONATE 648 MG TAB PO ONE (14:49)
[2019-03-04] MEDS ORDERED: CALCIUM CARBONATE 648 MG TAB PO ONE ×2 (15:00)
[2019-03-05] MEDS: HEPARIN 5,000 UNIT/1 ML VIAL SUB-Q SCH ×3 (05:54→21:49)
[2019-03-05] MEDS ORDERED: POTASSIUM CHLORIDE ER 20 MEQ TAB PO ONE (08:36)
[2019-03-05] MEDS ORDERED: MAGNESIUM SULFATE 1 GM in WATER FOR INJ (PF) 23 ML IV ONE (08:37)
[2019-03-05] MEDS ORDERED: MAGNESIUM SULFATE 1 GM in SODIUM CHLORIDE 0.9% 50 ML IV ONE (09:00)
[2019-03-05] MEDS: amLODIPine 5 MG TAB PO SCH (10:36)
[2019-03-05] MEDS: FAMOTIDINE 10 MG TAB PO SCH ×2 (10:36→21:49)
--- NOTE | 2019-03-05 12:48 | Progress Note ---
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 -Nephrology following New hypertension -uncontrolled -Amlodipine dose increased to 10 mg -monitor BP Metabolic acidosis -Secondary to the CKD -Improved Hypokalemia -repleted, will monitor level Hypomagnesemia -repleted, will monitor level N/V, diarrhea -likely 2/2 uremia, resolved Leukocytosis -Likely reactive, improved -Ua neg DVT prophylaxis with heparin Disposition: Patient will need outpatient hemodialysis chair before d/c, however he's unfunded. economic development manager following. History Interval history: Patient has no new complaints. He denied chest pain or sob Hospitalist Physical - Constitutional Vitals: Temp Pulse Resp BP Pulse Ox 98.3 F 75 20 157/104 97 03/05/19 06:28 03/05/19 10:36 03/05/19 06:28 03/05/19 10:36 03/05/19 06:28 General appearance: Present: no acute distress, well-nourished - EENT Eyes: Present: PERRL, EOM intact ENT: hearing intact, clear oral mucosa - Neck Neck: Present: supple - Respiratory Respiratory effort: normal Respiratory: bilateral: CTA - Cardiovascular Rhythm: regular Heart Sounds: Present: S1 & S2 - Extremities Extremities: No edema - Abdominal General gastrointestinal: soft, non-tender, normal bowel sounds - Integumentary Integumentary: Present: warm, dry - Psychiatric Psychiatric: appropriate mood/affect - Neurologic Neurologic: CNII-XII intact Results - Labs CBC & Chem 7: 03/04/19 08:57 03/05/19 06:47 Labs: Laboratory Last Values WBC 11.4 K/mm3 (4.5-11.0) H 03/04/19 08:57 RBC 4.74 M/mm3 (3.65-5.03) 03/04/19 08:57 Hgb 12.6 gm/dl (11.8-15.2) 03/04/19 08:57 Hct 36.9 % (35.5-45.6) 03/04/19 08:57 MCV 78 fl (84-94) L 03/04/19 08:57 MCH 27 pg (28-32) L 03/04/19 08:57 MCHC 34 % (32-34) 03/04/19 08:57 RDW 13.5 % (13.2-15.2) 03/04/19 08:57 Plt Count 242 K/mm3 (140-440) 03/04/19 08:57 Lymph % (Auto) 7.5 % (13.4-35.0) L 03/04/19 08:57 [place] % (Auto) 4.8 % (0.0-7.3) 03/04/19 08:57 Eos % (Auto) 0.0 % (0.0-4.3) 03/04/19 08:57 Baso % (Auto) 0.1 % (0.0-1.8) 03/04/19 08:57 Lymph # 0.9 K/mm3 (1.2-5.4) L 03/04/19 08:57 [place] # 0.5 K/mm3 (0.0-0.8) 03/04/19 08:57 Eos # 0.0 K/mm3 (0.0-0.4) 03/04/19 08:57 Baso # 0.0 K/mm3 (0.0-0.1) 03/04/19 08:57 Add Manual Diff Complete 03/03/19 09:48 Total Counted 100 03/03/19 09:48 Seg Neutrophils % 87.6 % (40.0-70.0) H 03/04/19 08:57 Seg Neuts % (Manual) 95.0 % (40.0-70.0) H 03/03/19 09:48 Band Neutrophils % 0 % 03/03/19 09:48 Lymphocytes % (Manual) 3.0 % (13.4-35.0) L 03/03/19 09:48 Reactive Lymphs % (Man) 0 % 03/03/19 09:48 Monocytes % (Manual) 1.0 % (0.0-7.3) 03/03/19 09:48 Eosinophils % (Manual) 0 % (0.0-4.3) 03/03/19 09:48 Basophils % (Manual) 1.0 % (0.0-1.8) 03/03/19 09:48 Metamyelocytes % 0 % 03/03/19 09:48 Myelocytes % 0 % 03/03/19 09:48 Promyelocytes % 0 % 03/03/19 09:48 Blast Cells % 0 % 03/03/19 09:48 Nucleated RBC % Not Reportable 03/03/19 09:48 Seg Neutrophils # 10.0 K/mm3 (1.8-7.7) H 03/04/19 08:57 Seg Neutrophils # Man 11.7 K/mm3 (1.8-7.7) H 03/03/19 09:48 Band Neutrophils # 0.0 K/mm3 03/03/19 09:48 Lymphocytes # (Manual) 0.4 K/mm3 (1.2-5.4) L 03/03/19 09:48 Abs React Lymphs (Man) 0.0 K/mm3 03/03/19 09:48 Monocytes # (Manual) 0.1 K/mm3 (0.0-0.8) 03/03/19 09:48 Eosinophils # (Manual) 0.0 K/mm3 (0.0-0.4) 03/03/19 09:48 Basophils # (Manual) 0.1 K/mm3 (0.0-0.1) 03/03/19 09:48 Metamyelocytes # 0.0 K/mm3 03/03/19 09:48 Myelocytes # 0.0 K/mm3 03/03/19 09:48 Promyelocytes # 0.0 K/mm3 03/03/19 09:48 Blast Cells # 0.0 K/mm3 03/03/19 09:48 WBC Morphology Not Reportable 03/03/19 09:48 Hypersegmented Neuts Not Reportable 03/03/19 09:48 Hyposegmented Neuts Not Reportable 03/03/19 09:48 Hypogranular Neuts Not Reportable 03/03/19 09:48 Smudge Cells Not Reportable 03/03/19 09:48 Toxic Granulation Not Reportable 03/03/19 09:48 Toxic Vacuolation Not Reportable 03/03/19 09:48 Dohle Bodies Not Reportable 03/03/19 09:48 Pelger-Huet Anomaly Not Reportable 03/03/19 09:48 Eunice Rods Not Reportable 03/03/19 09:48 Platelet Estimate Consistent w auto 03/03/19 09:48 Clumped Platelets Not Reportable 03/03/19 09:48 Plt Clumps, EDTA Not Reportable 03/03/19 09:48 Large Platelets Not Reportable 03/03/19 09:48 Giant Platelets Not Reportable 03/03/19 09:48 Platelet Satelliting Not Reportable 03/03/19 09:48 Plt Morphology Comment Not Reportable 03/03/19 09:48 RBC Morphology Normal 03/03/19 09:48 Dimorphic RBCs Not Reportable 03/03/19 09:48 Polychromasia Not Reportable 03/03/19 09:48 Hypochromasia Not Reportable 03/03/19 09:48 Poikilocytosis Not Reportable 03/03/19 09:48 Anisocytosis Not Reportable 03/03/19 09:48 Microcytosis Not Reportable 03/03/19 09:48 Macrocytosis Not Reportable 03/03/19 09:48 Spherocytes Not Reportable 03/03/19 09:48 Pappenheimer Bodies Not Reportable 03/03/19 09:48 Sickle Cells Not Reportable 03/03/19 09:48 Target Cells Not Reportable 03/03/19 09:48 Tear Drop Cells Not Reportable 03/03/19 09:48 Ovalocytes Not Reportable 03/03/19 09:48 Helmet Cells Not Reportable 03/03/19 09:48 [place] Bodies Not Reportable 03/03/19 09:48 [place] Rings Not Reportable 03/03/19 09:48 [place]o Cells Not Reportable 03/03/19 09:48 Bite Cells Not Reportable 03/03/19 09:48 Crenated Cell Not Reportable 03/03/19 09:48 Elliptocytes Not Reportable 03/03/19 09:48 Acanthocytes (Spur) Not Reportable 03/03/19 09:48 Rouleaux Not Reportable 03/03/19 09:48 Hemoglobin C Crystals Not Reportable 03/03/19 09:48 Schistocytes Not Reportable 03/03/19 09:48 Malaria parasites Not Reportable 03/03/19 09:48 Jose Alejandro Bodies Not Reportable 03/03/19 09:48 Hem Pathologist Commnt No 03/03/19 09:48 Sodium 135 mmol/L (137-145) L 03/05/19 06:47 Potassium 3.5 mmol/L (3.6-5.0) L 03/05/19 06:47 Chloride 89.8 mmol/L (98-107) L 03/05/19 06:47 Carbon Dioxide 22 mmol/L (22-30) 03/05/19 06:47 Anion Gap 27 mmol/L 03/05/19 06:47 BUN 44 mg/dL (9-20) H 03/05/19 06:47 Creatinine 6.5 mg/dL (0.8-1.5) H 03/05/19 06:47 Estimated GFR 10 ml/min 03/05/19 06:47 BUN/Creatinine Ratio 7 % 03/05/19 06:47 Glucose 119 mg/dL (75-100) H 03/05/19 06:47 Hemoglobin A1c 5.4 % (4-6) 03/03/19 09:48 Calcium 8.0 mg/dL (8.4-10.2) L 03/05/19 06:47 Phosphorus 4.80 mg/dL (2.5-4.5) H 03/03/19 09:54 Magnesium 1.50 mg/dL (1.7-2.3) L 03/05/19 06:47 Total Bilirubin 0.60 mg/dL (0.1-1.2) 03/04/19 08:57 AST 10 units/L (5-40) 03/04/19 08:57 ALT 13 units/L (7-56) 03/04/19 08:57 Alkaline Phosphatase 122 units/L (35-129) 03/04/19 08:57 Total Creatine Kinase 229 units/L (55-170) H 03/03/19 09:54 Total Protein 8.1 g/dL (6.3-8.2) 03/04/19 08:57 Albumin 4.8 g/dL (3.9-5) 03/04/19 08:57 Albumin/Globulin Ratio 1.5 % 03/04/19 08:57 Lipase 42 units/L (13-60) 03/03/19 09:54 Urine Color Straw (Yellow) 03/03/19 09:54 Urine Turbidity Clear (Clear) 03/03/19 09:54 Urine pH 6.0 (5.0-7.0) 03/03/19 09:54 Ur Specific [place] 1.009 (1.003-1.030) 03/03/19 09:54 Urine Protein >500 mg/dL (Negative) 03/03/19 09:54 Urine Glucose (UA) 50 mg/dL (Negative) 03/03/19 09:54 Urine Ketones Neg mg/dL (Negative) 03/03/19 09:54 Urine Blood Neg (Negative) 03/03/19 09:54 Urine Nitrite Neg (Negative) 03/03/19 09:54 Urine Bilirubin Neg (Negative) 03/03/19 09:54 Urine Urobilinogen < 2.0 mg/dL (<2.0) 03/03/19 09:54 Ur Leukocyte Esterase Neg (Negative) 03/03/19 09:54 Urine WBC (Auto) < 1.0 /HPF (0.0-6.0) 03/03/19 09:54 Urine RBC (Auto) 1.0 /HPF (0.0-6.0) 03/03/19 09:54 Hepatitis A IgM Ab Non-reactive (NonReactive) 03/03/19 Unknown Hep Bs Antigen Non-reactive (Negative) 03/03/19 Unknown Hep B Core IgM Ab Non-reactive (NonReactive) 03/03/19 Unknown Hepatitis C Antibody Non-reactive (NonReactive) 03/03/19 Unknown Active Medications - Current Medications Current Medications: Generic Name Dose Route Start Last Admin Trade Name Freq PRN Reason Stop Dose Admin Acetaminophen 650 mg 03/03/19 19:37 Tylenol PO Q4H PRN Pain MILD(1-3)/Fever >100.5/HERMOSILLO Amlodipine Besylate 5 mg 03/04/19 12:00 03/05/19 10:36 Amlodipine PO 5 mg QDAY SEBLE Administration Famotidine 10 mg 03/03/19 22:00 03/05/19 10:36 Pepcid PO 10 mg BID SEBLE Administration Heparin Sodium (Porcine) 5,000 unit 03/04/19 14:00 03/05/19 05:54 Heparin SUB-Q 5,000 unit Q8HR SEBLE Administration Hydromorphone HCl 0.5 mg 03/03/19 19:37 Dilaudid IV Q3H PRN Pain , Severe (7-10) Sodium Chloride 100 mls @ 999 mls/hr 03/04/19 08:05 Nacl 0.9% IV ANGELY PRN Hypotension Ondansetron HCl 4 mg 03/03/19 19:37 03/04/19 21:51 Zofran IV 4 mg Q8H PRN Administration Nausea And Vomiting Oxycodone/Acetaminophen 1 tab 03/03/19 19:37 Percocet 5/325 PO Q6H PRN Pain, Moderate (4-6) Sodium Chloride 10 ml 03/03/19 22:00 03/05/19 10:37 Sodium Chloride Flush Syringe 10 Ml IV 10 ml BID SEBLE Administration Sodium Chloride 10 ml 03/03/19 19:37 Sodium Chloride Flush Syringe 10 Ml IV PRN PRN LINE FLUSH
[2019-03-05] MEDS ORDERED: amLODIPine 5 MG TAB PO ONE ×2 (13:00→17:00)
--- NOTE | 2019-03-05 14:32 | Progress Note ---
Assessment and Plan - Patient Problems (1) ESRD (end stage renal disease) Current Visit: Yes Status: Chronic Plan to address problem: cont HD on MWF schedule. pt will need permcath prior to discharge. outpatient HD arrangement as per case management. (2) IgAN (IgA nephropathy) Current Visit: Yes Status: Acute (3) Metabolic acidosis Current Visit: Yes Status: Acute Plan to address problem: corrected with HD (4) Nausea vomiting and diarrhea Current Visit: Yes Status: Acute Plan to address problem: likely due to uremic symptoms in the setting of advanced renal failure/ESRD Subjective Date of service: 03/05/19 Principal diagnosis: ESRD Interval history: pt awake, alert, in NAD Objective - Vital Signs Vital signs: Vital Signs - 12hr 03/05/19 03/05/19 03/05/19 06:28 10:35 10:36 Temperature 98.3 F Pulse Rate 86 75 Respiratory 20 Rate Blood Pressure 163/93 157/104 157/104 O2 Sat by Pulse 97 Oximetry 03/05/19 11:42 Temperature 98.7 F Pulse Rate 77 Respiratory 18 Rate Blood Pressure 138/90 O2 Sat by Pulse 98 Oximetry - General Appearance General appearance: well-developed, well-nourished, appears stated age EENT: ATNC, PERRL, mucous membranes moist Neck: no JVD Respiratory: Present: Clear to Ascultation Cardiology: regular, S1S2 Gastrointestinal: normoactive bowel sounds Integumentary: no rash, other (no edema ) Neurologic: no focal deficit, alert and oriented x3, strength 5/5, CN 3-12 intact Psychiatric: mood/affect appropriate, cooperative - Lab 03/04/19 08:57 03/05/19 06:47 Most recent lab results Calcium 8.0 mg/dL (8.4-10.2) L 03/05/19 06:47 Phosphorus 4.80 mg/dL (2.5-4.5) H 03/03/19 09:54 Magnesium 1.50 mg/dL (1.7-2.3) L 03/05/19 06:47 Medications & Allergies - Medications Allergies/Adverse Reactions: Allergies No Known Allergies Allergy (Unverified 03/03/19 09:13) Active Medications: Generic Name Dose Route Start Last Admin Trade Name Freq PRN Reason Stop Dose Admin Acetaminophen 650 mg 03/03/19 19:37 Tylenol PO Q4H PRN Pain MILD(1-3)/Fever >100.5/HERMOSILLO Amlodipine Besylate 10 mg 03/06/19 10:00 Amlodipine PO DAILY [facility] Famotidine 10 mg 03/03/19 22:00 03/05/19 10:36 Pepcid PO 10 mg BID SEBLE Administration Heparin Sodium (Porcine) 5,000 unit 03/04/19 14:00 03/05/19 05:54 Heparin SUB-Q 5,000 unit Q8HR SEBLE Administration Hydromorphone HCl 0.5 mg 03/03/19 19:37 Dilaudid IV Q3H PRN Pain , Severe (7-10) Sodium Chloride 100 mls @ 999 mls/hr 03/04/19 08:05 Nacl 0.9% IV ANGELY PRN Hypotension Ondansetron HCl 4 mg 03/03/19 19:37 03/04/19 21:51 Zofran IV 4 mg Q8H PRN Administration Nausea And Vomiting Oxycodone/Acetaminophen 1 tab 03/03/19 19:37 Percocet 5/325 PO Q6H PRN Pain, Moderate (4-6) Sodium Chloride 10 ml 03/03/19 22:00 03/05/19 10:37 Sodium Chloride Flush Syringe 10 Ml IV 10 ml BID SEBLE Administration Sodium Chloride 10 ml 03/03/19 19:37 Sodium Chloride Flush Syringe 10 Ml IV PRN PRN LINE FLUSH
[2019-03-06] MEDS: HEPARIN 5,000 UNIT/1 ML VIAL SUB-Q SCH ×3 (06:45→21:53)
[2019-03-06 07:08] LABS: Hematocrit 38.2 % (35.5-45.6); Hemoglobin 12.9 gm/dl (11.8-15.2); Mean Corpuscular HGB Conc 34 % (32-34); Mean Corpuscular Volume 80 fl (84-94); Platelet Count 180 K/mm3 (140-440); Red Cell Distribution Width 13.3 % (13.2-15.2)
[2019-03-06 07:27] LABS: Calcium 7.5 mg/dL (8.4-10.2)
--- NOTE | 2019-03-06 09:43 | Progress Note ---
Hospitalist Physical - Constitutional Vitals: Temp Pulse Resp BP Pulse Ox 97.8 F 74 18 153/98 99 03/06/19 04:14 03/06/19 06:45 03/06/19 06:45 03/06/19 06:45 03/06/19 06:45 General appearance: Present: no acute distress, well-nourished Results - Labs CBC & Chem 7: 03/06/19 06:39 03/06/19 06:39 Labs: Laboratory Last Values WBC 8.9 K/mm3 (4.5-11.0) 03/06/19 06:39 RBC 4.80 M/mm3 (3.65-5.03) 03/06/19 06:39 Hgb 12.9 gm/dl (11.8-15.2) 03/06/19 06:39 Hct 38.2 % (35.5-45.6) 03/06/19 06:39 MCV 80 fl (84-94) L 03/06/19 06:39 MCH 27 pg (28-32) L 03/06/19 06:39 MCHC 34 % (32-34) 03/06/19 06:39 RDW 13.3 % (13.2-15.2) 03/06/19 06:39 Plt Count 180 K/mm3 (140-440) 03/06/19 06:39 Lymph % (Auto) 7.5 % (13.4-35.0) L 03/04/19 08:57 [place] % (Auto) 4.8 % (0.0-7.3) 03/04/19 08:57 Eos % (Auto) 0.0 % (0.0-4.3) 03/04/19 08:57 Baso % (Auto) 0.1 % (0.0-1.8) 03/04/19 08:57 Lymph # 0.9 K/mm3 (1.2-5.4) L 03/04/19 08:57 [place] # 0.5 K/mm3 (0.0-0.8) 03/04/19 08:57 Eos # 0.0 K/mm3 (0.0-0.4) 03/04/19 08:57 Baso # 0.0 K/mm3 (0.0-0.1) 03/04/19 08:57 Add Manual Diff Complete 03/03/19 09:48 Total Counted 100 03/03/19 09:48 Seg Neutrophils % 87.6 % (40.0-70.0) H 03/04/19 08:57 Seg Neuts % (Manual) 95.0 % (40.0-70.0) H 03/03/19 09:48 Band Neutrophils % 0 % 03/03/19 09:48 Lymphocytes % (Manual) 3.0 % (13.4-35.0) L 03/03/19 09:48 Reactive Lymphs % (Man) 0 % 03/03/19 09:48 Monocytes % (Manual) 1.0 % (0.0-7.3) 03/03/19 09:48 Eosinophils % (Manual) 0 % (0.0-4.3) 03/03/19 09:48 Basophils % (Manual) 1.0 % (0.0-1.8) 03/03/19 09:48 Metamyelocytes % 0 % 03/03/19 09:48 Myelocytes % 0 % 03/03/19 09:48 Promyelocytes % 0 % 03/03/19 09:48 Blast Cells % 0 % 03/03/19 09:48 Nucleated RBC % Not Reportable 03/03/19 09:48 Seg Neutrophils # 10.0 K/mm3 (1.8-7.7) H 03/04/19 08:57 Seg Neutrophils # Man 11.7 K/mm3 (1.8-7.7) H 03/03/19 09:48 Band Neutrophils # 0.0 K/mm3 03/03/19 09:48 Lymphocytes # (Manual) 0.4 K/mm3 (1.2-5.4) L 03/03/19 09:48 Abs React Lymphs (Man) 0.0 K/mm3 03/03/19 09:48 Monocytes # (Manual) 0.1 K/mm3 (0.0-0.8) 03/03/19 09:48 Eosinophils # (Manual) 0.0 K/mm3 (0.0-0.4) 03/03/19 09:48 Basophils # (Manual) 0.1 K/mm3 (0.0-0.1) 03/03/19 09:48 Metamyelocytes # 0.0 K/mm3 03/03/19 09:48 Myelocytes # 0.0 K/mm3 03/03/19 09:48 Promyelocytes # 0.0 K/mm3 03/03/19 09:48 Blast Cells # 0.0 K/mm3 03/03/19 09:48 WBC Morphology Not Reportable 03/03/19 09:48 Hypersegmented Neuts Not Reportable 03/03/19 09:48 Hyposegmented Neuts Not Reportable 03/03/19 09:48 Hypogranular Neuts Not Reportable 03/03/19 09:48 Smudge Cells Not Reportable 03/03/19 09:48 Toxic Granulation Not Reportable 03/03/19 09:48 Toxic Vacuolation Not Reportable 03/03/19 09:48 Dohle Bodies Not Reportable 03/03/19 09:48 Pelger-Huet Anomaly Not Reportable 03/03/19 09:48 [place]unice Rods Not Reportable 03/03/19 09:48 Platelet Estimate Consistent w auto 03/03/19 09:48 Clumped Platelets Not Reportable 03/03/19 09:48 Plt Clumps, EDTA Not Reportable 03/03/19 09:48 Large Platelets Not Reportable 03/03/19 09:48 Giant Platelets Not Reportable 03/03/19 09:48 Platelet Satelliting Not Reportable 03/03/19 09:48 Plt Morphology Comment Not Reportable 03/03/19 09:48 RBC Morphology Normal 03/03/19 09:48 Dimorphic RBCs Not Reportable 03/03/19 09:48 Polychromasia Not Reportable 03/03/19 09:48 Hypochromasia Not Reportable 03/03/19 09:48 Poikilocytosis Not Reportable 03/03/19 09:48 Anisocytosis Not Reportable 03/03/19 09:48 Microcytosis Not Reportable 03/03/19 09:48 Macrocytosis Not Reportable 03/03/19 09:48 Spherocytes Not Reportable 03/03/19 09:48 Pappenheimer Bodies Not Reportable 03/03/19 09:48 Sickle Cells Not Reportable 03/03/19 09:48 Target Cells Not Reportable 03/03/19 09:48 Tear Drop Cells Not Reportable 03/03/19 09:48 Ovalocytes Not Reportable 03/03/19 09:48 Helmet Cells Not Reportable 03/03/19 09:48 [place] Bodies Not Reportable 03/03/19 09:48 [place] Rings Not Reportable 03/03/19 09:48 Pollo Cells Not Reportable 03/03/19 09:48 Bite Cells Not Reportable 03/03/19 09:48 Crenated Cell Not Reportable 03/03/19 09:48 Elliptocytes Not Reportable 03/03/19 09:48 Acanthocytes (Spur) Not Reportable 03/03/19 09:48 Rouleaux Not Reportable 03/03/19 09:48 Hemoglobin C Crystals Not Reportable 03/03/19 09:48 Schistocytes Not Reportable 03/03/19 09:48 Malaria parasites Not Reportable 03/03/19 09:48 Jose Alejandro Bodies Not Reportable 03/03/19 09:48 Hem Pathologist Commnt No 03/03/19 09:48 Sodium 135 mmol/L (137-145) L 03/06/19 06:39 Potassium 3.7 mmol/L (3.6-5.0) 03/06/19 06:39 Chloride 90.6 mmol/L (98-107) L 03/06/19 06:39 Carbon Dioxide 21 mmol/L (22-30) L 03/06/19 06:39 Anion Gap 27 mmol/L 03/06/19 06:39 BUN 59 mg/dL (9-20) H 03/06/19 06:39 Creatinine 7.9 mg/dL (0.8-1.5) H 03/06/19 06:39 Estimated GFR 8 ml/min 03/06/19 06:39 BUN/Creatinine Ratio 7 % 03/06/19 06:39 Glucose 104 mg/dL (75-100) H 03/06/19 06:39 Hemoglobin A1c 5.4 % (4-6) 03/03/19 09:48 Calcium 7.5 mg/dL (8.4-10.2) L 03/06/19 06:39 Phosphorus 4.80 mg/dL (2.5-4.5) H 03/03/19 09:54 Magnesium 1.90 mg/dL (1.7-2.3) 03/06/19 06:39 Total Bilirubin 0.60 mg/dL (0.1-1.2) 03/04/19 08:57 AST 10 units/L (5-40) 03/04/19 08:57 ALT 13 units/L (7-56) 03/04/19 08:57 Alkaline Phosphatase 122 units/L (35-129) 03/04/19 08:57 Total Creatine Kinase 229 units/L (55-170) H 03/03/19 09:54 Total Protein 8.1 g/dL (6.3-8.2) 03/04/19 08:57 Albumin 4.8 g/dL (3.9-5) 03/04/19 08:57 Albumin/Globulin Ratio 1.5 % 03/04/19 08:57 Lipase 42 units/L (13-60) 03/03/19 09:54 Urine Color Straw (Yellow) 03/03/19 09:54 Urine Turbidity Clear (Clear) 03/03/19 09:54 Urine pH 6.0 (5.0-7.0) 03/03/19 09:54 Ur Specific [place] 1.009 (1.003-1.030) 03/03/19 09:54 Urine Protein >500 mg/dL (Negative) 03/03/19 09:54 Urine Glucose (UA) 50 mg/dL (Negative) 03/03/19 09:54 Urine Ketones Neg mg/dL (Negative) 03/03/19 09:54 Urine Blood Neg (Negative) 03/03/19 09:54 Urine Nitrite Neg (Negative) 03/03/19 09:54 Urine Bilirubin Neg (Negative) 03/03/19 09:54 Urine Urobilinogen < 2.0 mg/dL (<2.0) 03/03/19 09:54 Ur Leukocyte Esterase Neg (Negative) 03/03/19 09:54 Urine WBC (Auto) < 1.0 /HPF (0.0-6.0) 03/03/19 09:54 Urine RBC (Auto) 1.0 /HPF (0.0-6.0) 03/03/19 09:54 Hepatitis A IgM Ab Non-reactive (NonReactive) 03/03/19 Unknown Hep Bs Antigen Non-reactive (Negative) 03/03/19 Unknown Hep B Core IgM Ab Non-reactive (NonReactive) 03/03/19 Unknown Hepatitis C Antibody Non-reactive (NonReactive) 03/03/19 Unknown Active Medications - Current Medications Current Medications: Generic Name Dose Route Start Last Admin Trade Name Freq PRN Reason Stop Dose Admin Acetaminophen 650 mg 03/03/19 19:37 Tylenol PO Q4H PRN Pain MILD(1-3)/Fever >100.5/HERMOSILLO Amlodipine Besylate 10 mg 03/06/19 10:00 Amlodipine PO DAILY SEBLE Famotidine 10 mg 03/03/19 22:00 03/05/19 21:49 Pepcid PO 10 mg BID SEBLE Administration Heparin Sodium (Porcine) 5,000 unit 03/04/19 14:00 03/06/19 06:45 Heparin SUB-Q 5,000 unit Q8HR SEBLE Administration Hydromorphone HCl 0.5 mg 03/03/19 19:37 Dilaudid IV Q3H PRN Pain , Severe (7-10) Sodium Chloride 100 mls @ 999 mls/hr 03/04/19 08:05 Nacl 0.9% IV ANGELY PRN Hypotension Ondansetron HCl 4 mg 03/03/19 19:37 03/04/19 21:51 Zofran IV 4 mg Q8H PRN Administration Nausea And Vomiting Oxycodone/Acetaminophen 1 tab 03/03/19 19:37 Percocet 5/325 PO Q6H PRN Pain, Moderate (4-6) Sodium Chloride 10 ml 03/03/19 22:00 03/05/19 21:49 Sodium Chloride Flush Syringe 10 Ml IV 10 ml BID SEBLE Administration Sodium Chloride 10 ml 03/03/19 19:37 Sodium Chloride Flush Syringe 10 Ml IV PRN PRN LINE FLUSH
[2019-03-06] MEDS: FAMOTIDINE 10 MG TAB PO SCH ×2 (09:50→21:52)
[2019-03-06] MEDS: amLODIPine 10 MG TAB PO SCH (09:50)
--- NOTE | 2019-03-06 16:30 | Progress Note ---
Assessment and Plan - Patient Problems (1) ESRD (end stage renal disease) Current Visit: Yes Status: Chronic Plan to address problem: cont HD on MWF schedule. pt will need permcath prior to discharge. outpatient HD arrangement as per case management, which could be difficult due to pt's undocumented/unfunded status. 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 (3) Metabolic acidosis Current Visit: Yes Status: Acute Plan to address problem: corrected with HD (4) Nausea vomiting and diarrhea Current Visit: Yes Status: Acute Plan to address problem: resolved Subjective Date of service: 03/06/19 Principal diagnosis: ESRD Interval history: pt awake, alert, in NAD Objective - Vital Signs Vital signs: Vital Signs - 12hr 03/06/19 03/06/19 06:45 11:55 Temperature 98.0 F Pulse Rate 74 75 Respiratory 18 16 Rate Blood Pressure 153/98 156/101 O2 Sat by Pulse 99 97 Oximetry - General Appearance General appearance: well-developed, well-nourished, appears stated age EENT: ATNC, PERRL, mucous membranes moist Neck: no JVD Respiratory: Present: Clear to Ascultation Cardiology: regular, S1S2 Gastrointestinal: normoactive bowel sounds Integumentary: no rash, other (no edema ) Neurologic: no focal deficit, alert and oriented x3, strength 5/5, CN 3-12 intact Psychiatric: mood/affect appropriate, cooperative - Lab 03/06/19 06:39 03/06/19 06:39 Most recent lab results Calcium 7.5 mg/dL (8.4-10.2) L 03/06/19 06:39 Phosphorus 4.80 mg/dL (2.5-4.5) H 03/03/19 09:54 Magnesium 1.90 mg/dL (1.7-2.3) 03/06/19 06:39 Medications & Allergies - Medications Allergies/Adverse Reactions: Allergies No Known Allergies Allergy (Unverified 03/03/19 09:13) Active Medications: Generic Name Dose Route Start Last Admin Trade Name Freq PRN Reason Stop Dose Admin Acetaminophen 650 mg 03/03/19 19:37 Tylenol PO Q4H PRN Pain MILD(1-3)/Fever >100.5/HERMOSILLO Amlodipine Besylate 10 mg 03/06/19 10:00 03/06/19 09:50 Amlodipine PO 10 mg DAILY SEBLE Administration Famotidine 10 mg 03/03/19 22:00 03/06/19 09:50 Pepcid PO 10 mg BID SEBLE Administration Heparin Sodium (Porcine) 5,000 unit 03/04/19 14:00 03/06/19 14:12 Heparin SUB-Q 5,000 unit Q8HR SEBLE Administration Hydromorphone HCl 0.5 mg 03/03/19 19:37 Dilaudid IV Q3H PRN Pain , Severe (7-10) Sodium Chloride 100 mls @ 999 mls/hr 03/04/19 08:05 Nacl 0.9% IV ANGELY PRN Hypotension Ondansetron HCl 4 mg 03/03/19 19:37 03/04/19 21:51 Zofran IV 4 mg Q8H PRN Administration Nausea And Vomiting Oxycodone/Acetaminophen 1 tab 03/03/19 19:37 Percocet 5/325 PO Q6H PRN Pain, Moderate (4-6) Sodium Chloride 10 ml 03/03/19 22:00 03/06/19 14:50 Sodium Chloride Flush Syringe 10 Ml IV 10 ml BID SEBLE Administration Sodium Chloride 10 ml 03/03/19 19:37 Sodium Chloride Flush Syringe 10 Ml IV PRN PRN LINE FLUSH
[2019-03-06] MEDS ORDERED: hydrALAZINE 20 MG/1 ML INJ IV PRN (19:41)
[2019-03-06] MEDS: LISINOPRIL 20 MG TAB PO SCH (21:52)
--- NOTE | 2019-03-06 22:29 | Event Note ---
Date: 03/06/19 NPO after MN except sips of water with meds tentative plan for vascath to permcath conversion tomorrow
[2019-03-07] MEDS: amLODIPine 10 MG TAB PO SCH (05:22)
[2019-03-07] MEDS: HEPARIN 5,000 UNIT/1 ML VIAL SUB-Q SCH (05:49)
[2019-03-07 08:00] LABS: Calcium 7.2 mg/dL (8.4-10.2)
[2019-03-07] MEDS ORDERED: LIDOCAINE (1%) 10 MG/1 ML VIAL 20 ML MDV ONE (10:04)
[2019-03-07] MEDS ORDERED: SODIUM CHLORIDE 0.9% 250ML 250 ML ONE (10:05)
[2019-03-07] MEDS ORDERED: HEPARIN 10,000 UNITS/10 ML VIAL ONE (10:05)
[2019-03-07] MEDS ORDERED: HEPARIN 10,000 UNIT/1 ML VIAL ONE (10:05)
--- NOTE | 2019-03-07 10:14 | Anesthesia Day of Surgery ---
Anesthesia Day of Surgery - Day of Surgery Patient Examined: Yes Patient H&P Reviewed: Yes Patient is NPO: Yes Beta Blockers: No Cardiac Clearance: No Pulmonary Clearance: No Gomez's Test: N/A
--- NOTE | 2019-03-07 10:18 | Anesthesia Consultation ---
Anesthesia Consult and Med Hx - Airway ROM Head & Neck: Adequate Mental/Hyoid Distance: Adequate Mallampati Class: Class II Intubation Access Assessment: Probably Good - Pulmonary Exam CTA: Yes - Cardiac Exam Cardiac Exam: RRR - Pre-Operative Health Status ASA Pre-Surgery Classification: ASA3 Proposed Anesthetic Plan: General, MAC - Pulmonary Hx Smoking: No Hx Asthma: No SOB: No COPD: No Hx Pneumonia: No Hx Sleep Apnea: No - Cardiovascular System Hx Heart Attack/AMI: No - Central Nervous System CVA: No Hx Back Pain: No Hx Psychiatric Problems: No - Gastrointestinal Hx Ulcer: No (Abd Pain, N/V/D) - Endocrine Hx Renal Disease: Yes 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
[2019-03-07] MEDS: LISINOPRIL 20 MG TAB PO SCH (10:23)
[2019-03-07] MEDS: FAMOTIDINE 10 MG TAB PO SCH (10:23)
[2019-03-07] MEDS ORDERED: fentaNYL 100 MCG/2 ML INJ ONE (10:30)
[2019-03-07] MEDS ORDERED: PROPOFOL 200 MG/20 ML VIAL IV ONE ×2 (10:30→11:23)
[2019-03-07] MEDS ORDERED: LIDOCAINE MPF (2%) 20 MG/1 ML VIAL 5 ML ONE (10:30)
[2019-03-07] MEDS ORDERED: LIDOCAINE (1%) 10 MG/1 ML VIAL 20 ML MDV INFILTRATI ONE ×2 (11:12)
[2019-03-07] MEDS ORDERED: HEPARIN 10,000 UNITS/10 ML VIAL IV ONE (11:13)
[2019-03-07] MEDS ORDERED: SODIUM CHLORIDE 0.9% IR ONE (11:13)
[2019-03-07] MEDS ORDERED: HEPARIN IR ONE (11:13)
--- NOTE | 2019-03-07 11:26 | Progress Note ---
Assessment and Plan - Patient Problems (1) ESRD (end stage renal disease) Current Visit: Yes Status: Chronic Plan to address problem: Status post PermCath placement today. It'll be a challenge for him to be set up as an outpatient for hemodialysis given his undocumented state. We will have case management worked with patient. Continue on TTS inpatient hemodialysis schedule while here in the hospital. (2) IgAN (IgA nephropathy) Current Visit: Yes Status: Acute Plan to address problem: Biopsy-proven IgA nephropathy with significant chronicity and interstitial fibrosis noted on biopsy findings. Patient now has progressed to chronic kidney disease stage V requiring chronic dialysis. (3) Metabolic acidosis Current Visit: Yes Status: Chronic Plan to address problem: While receiving hemodialysis no acute needs for bicarbonate supplementation. (4) Nausea vomiting and diarrhea Current Visit: Yes Status: Acute Plan to address problem: Related to his symptoms of uremia which have improved after he was initiated on hemodialysis. Subjective Date of service: 03/07/19 Principal diagnosis: ESRD Interval history: No acute issues. Plan for permcath placement today. Objective - Vital Signs Vital signs: Vital Signs - 12hr 03/07/19 05:22 Temperature 97.3 F L Pulse Rate 90 Respiratory 18 Rate Blood Pressure 135/98 O2 Sat by Pulse 99 Oximetry - General Appearance General appearance: well-developed, well-nourished, appears stated age EENT: ATNC, PERRL Neck: no JVD, no thyromegaly Respiratory: Present: Clear to Ascultation, Normal Exam Cardiology: regular, S1S2 Gastrointestinal: normal, normoactive bowel sounds Integumentary: no rash, warm and dry Neurologic: no focal deficit, confused Musculoskeletal: deferred Psychiatric: mood/affect appropriate, cooperative - Lab 03/06/19 06:39 03/07/19 06:41 Most recent lab results Calcium 7.2 mg/dL (8.4-10.2) L 03/07/19 06:41 Phosphorus 4.80 mg/dL (2.5-4.5) H 03/03/19 09:54 Magnesium 1.90 mg/dL (1.7-2.3) 03/06/19 06:39 - Imaging Chest x-ray: report reviewed - Allied health notes Allied health notes reviewed: nursing Medications & Allergies - Medications Allergies/Adverse Reactions: Allergies No Known Allergies Allergy (Unverified 03/03/19 09:13) Home Medications: Home Medications Medication Instructions Recorded Confirmed Last Taken Type Lisinopril [Zestril TAB] 20 mg PO QDAY #30 tablet 03/07/19 Unknown Rx amLODIPine 10 mg PO DAILY #30 tablet 03/07/19 Unknown Rx Active Medications: Generic Name Dose Route Start Last Admin Trade Name Freq PRN Reason Stop Dose Admin Acetaminophen 650 mg 03/03/19 19:37 Tylenol PO Q4H PRN Pain MILD(1-3)/Fever >100.5/HERMOSILLO Amlodipine Besylate 10 mg 03/06/19 10:00 03/07/19 05:22 Amlodipine PO Not Given DAILY [facility] Famotidine 10 mg 03/03/19 22:00 03/07/19 10:23 Pepcid PO Not Given BID [facility] Heparin Sodium (Porcine) 5,000 unit 03/04/19 14:00 03/07/19 05:49 Heparin SUB-Q Not Given Q8HR [facility] Hydralazine HCl 10 mg 03/06/19 19:41 Apresoline IV Q4HR PRN BP >160/100 Hydromorphone HCl 0.5 mg 03/03/19 19:37 Dilaudid IV Q3H PRN Pain , Severe (7-10) Sodium Chloride 100 mls @ 999 mls/hr 03/04/19 08:05 Nacl 0.9% IV ANGELY PRN Hypotension Lisinopril 20 mg 03/06/19 20:00 03/07/19 10:23 Zestril PO Not Given QDAY [facility] Ondansetron HCl 4 mg 03/03/19 19:37 03/04/19 21:51 Zofran IV 4 mg Q8H PRN Administration Nausea And Vomiting Oxycodone/Acetaminophen 1 tab 03/03/19 19:37 Percocet 5/325 PO Q6H PRN Pain, Moderate (4-6) Sodium Chloride 10 ml 03/03/19 22:00 03/06/19 21:53 Sodium Chloride Flush Syringe 10 Ml IV 10 ml BID SEBLE Administration Sodium Chloride 10 ml 03/03/19 19:37 Sodium Chloride Flush Syringe 10 Ml IV PRN PRN LINE FLUSH
--- NOTE | 2019-03-07 11:30 | Discharge Summary ---
Providers - Providers Date of Admission: 03/03/19 13:01 Attending physician: DAGMAR NEWBERRY MD 03/03/19 Consult to Case Management [CONS] Routine Services Needed at Discharge: Caustic Purification Operator Notified:: bowen 03/03/19 12:55 Consult to Physician [CONS] Stat Comment: Consulting Provider: RORO ZAFAR Physician Instructions: Reason For Exam: ESRD worsening kidney function, metabolic acidosis 03/07/19 07:44 Consult to Interventional Radiology [CONS] Routine Consulting Provider: MICHELLE HDEZ Reason For Exam: permcath placement Place consult to:: DR. ROMERO Notified:: DR. ROMERO Phone number called:: [phone] Was contact made?: Yes If yes, spoke with:: DARIUS Time called:: 11:00 Comment:: KYLEIGH SPOKE WITH DR. TOMASA ROMERO Primary care physician: OPERATING ROOM TECHNOLOGIST Hospitalization Condition: Stable Exam - Constitutional Vitals: Temp Pulse Resp BP Pulse Ox 97.3 F L 90 18 135/98 99 03/07/19 05:22 03/07/19 05:22 03/07/19 05:22 03/07/19 05:22 03/07/19 05:22 Plan Follow up with: PRIMARY CAREMD [Primary Care Provider] - 3-5 Days Prescriptions: amLODIPine 10 mg PO DAILY #30 tablet Lisinopril [Zestril TAB] 20 mg PO QDAY #30 tablet
--- NOTE | 2019-03-07 12:07 | Fluoroscopy Report ---
FLUOROSCOPY CENTRAL VENOUS DEVICE PLACEMENT HISTORY: Acute renal failure, right permacath placement FINDINGS: 0.3 minutes of fluoroscopy time was provided by radiology. Single fluoroscopic image of the chest is presented demonstrating the distal tip of the permacath in the mid right atrium. No obvious pneumothorax is appreciated. Please correlate with the procedural report as needed. Signer Name: Babatunde Hays Jr, MD Signed: 03/07/2019 12:02 PM Workstation Name: [id number]
--- NOTE | 2019-03-07 12:39 | Post Operative Note ---
Pre-op diagnosis: ESRD Post-op diagnosis: same Procedure: Right IJ Permcath Insertion Anesthesia: MAC, local Surgeon: KEITH SRINIVASAN Estimated blood loss: minimal Pathology: none Condition: stable Disposition: floor
--- NOTE | 2019-03-07 13:06 | Post Anesthesia Evaluation ---
- Post Anesthesia Evaluation Patient Participated: Yes Airway Patent: Yes Stable Respiratory Function: Yes Nausea/Vomiting: No Temp > 96.8F: Yes Pain Manageable: Yes Adequeate Hydration: Yes Anesthesia Complications: No Block Receding Appropriately: Not Applicable Patient on Ventilator: No
--- NOTE | 2019-03-07 14:35 | Operative Report ---
STAFF SURGEON: Dr. Christiano Barton. PREOPERATIVE DIAGNOSIS: End-stage renal disease. POSTOPERATIVE DIAGNOSIS: End-stage renal disease. PROCEDURE PERFORMED: Right IJ PermCath insertion. COMPLICATIONS: None. ESTIMATED BLOOD LOSS: Less than 10 mL. ANESTHESIA: Local MAC. INDICATIONS FOR PROCEDURE: This is a 23-year-old gentleman, who has had a worsening renal function and is now requiring a permanent dialysis. The patient has been currently dialyzing through a temporary dialysis catheter and now deemed appropriate for a permanent dialysis catheter insertion. The patient was explained all the risks, benefits, and alternatives of the procedure, expressed the understanding, and wished to proceed. DESCRIPTION OF PROCEDURE: After appropriate consent was obtained, the patient was brought back to the operating room and placed on the operating table in supine position and the right neck and chest were prepped and draped in the usual sterile fashion with ChloraPrep. Appropriate time-out was performed, indicating the correct patient, procedure, and site of the procedure. We then began the intervention by placing a Bentson wire through the existing temporary dialysis catheter into the inferior vena cava. The catheter was removed and discarded. The Bentson wire was then wiped down with 3 swabs of Betadine-soaked gauze and then 3 swabs of the saline-soaked gauze. Then, the access site was serially dilated appropriately and then a stab incision was made on the anterior chest wall and a subcutaneous tunnel was made, bringing through a 23 cm straight PermCath sheath and dilator was then placed over the wire into the SVC. The dilator and wire were removed. Catheter was placed through the peel-away sheath with the tip of the catheter at the SVC-right atrial junction. The peel-away sheath was removed. Both lumens jenise blood appropriately and were flushed with heparinized saline. Appropriate amount of heparin was placed in each port. The access site was then closed with the deep subcutaneous layer with a 3-0 Vicryl and the skin was approximated with 3-0 nylon. The catheter exit site was sutured in place with a 3-0 nylon. Appropriate dressing was placed. The patient tolerated the procedure well, emerged from the conscious sedation, and was sent to recovery in a stable condition. JOB# [id number] LEANNE/MIKE
[2019-03-07 20:08] VITALS: BP 130/85
[2019-03-07] MEDS ORDERED: SODIUM CHLORIDE*PRIMING MACHINE ONLY FOR DIALYSIS MC ONE (22:14)
== END 2019-03-07 20:30 | disposition home or self-care (01) | DRG 673 ==
LOC: ED 09:09 → 3A 13:01
PROVIDERS: ADMIT Internal Medicine; ATTEND Internal Medicine
PROC: 02HV33Z Insertion of Infusion Device into Superior Vena Cava, Percutaneous Approach (ICD-10-PCS; 2019-03-03)
PROC: B548ZZA Ultrasonography of Superior Vena Cava, Guidance (ICD-10-PCS; 2019-03-03)
PROC: 5A1D70Z Performance of Urinary Filtration, Intermittent, Less than 6 Hours Per Day (ICD-10-PCS; 2019-03-03)
PROC: 5A1D70Z Performance of Urinary Filtration, Intermittent, Less than 6 Hours Per Day (ICD-10-PCS; 2019-03-04)
PROC: 0JH63XZ Insertion of Tunneled Vascular Access Device into Chest Subcutaneous Tissue and Fascia, Percutaneous Approach (ICD-10-PCS; principal; 2019-03-07)
PROC: 02HV33Z Insertion of Infusion Device into Superior Vena Cava, Percutaneous Approach (ICD-10-PCS; 2019-03-07)
PROC: 02PY33Z Removal of Infusion Device from Great Vessel, Percutaneous Approach (ICD-10-PCS; 2019-03-07)
PROC: 5A1D70Z Performance of Urinary Filtration, Intermittent, Less than 6 Hours Per Day (ICD-10-PCS; 2019-03-07)
DX: I12.0 Hypertensive chronic kidney disease with stage 5 chronic kidney disease or end stage renal disease (principal); N18.6 End stage renal disease; E87.2 Acidosis; N17.9 Acute kidney failure, unspecified; K56.7 Ileus, unspecified; E87.6 Hypokalemia; E83.42 Hypomagnesemia; Z91.19 Patient's noncompliance with other medical treatment and regimen
CPT/HCPCS: 36415; 36556; 71046; 74176; 77001; 80048; 80053; 80074; 81001; 82550; 83036; 83690; 83735; 84100; 85007; 85025; 85027; G0378; C1750; C1752; C1769; C9113; J1644; J2250; J2270; J2405; J2704; J3010; J3475; J7030; J7040; J7050

== ENCOUNTER 2019-03-10 04:27 | Inpatient (IN) | payer OTHER ==
[2019-03-10] MEDS ORDERED: HYDROcodone/ACETAMINOPHEN 5-325 MG TAB PO ONE (05:44)
[2019-03-10 06:10] LABS: Hematocrit 34.2 % (35.5-45.6); Hemoglobin 11.7 gm/dl (11.8-15.2); Mean Corpuscular HGB Conc 34 % (32-34); Mean Corpuscular Volume 79 fl (84-94); Platelet Count 113 K/mm3 (140-440); Red Blood Count 4.36 M/mm3 (3.65-5.03); Red Cell Distribution Width 12.9 % (13.2-15.2)
[2019-03-10 06:25] LABS: Calcium 7.8 mg/dL (8.4-10.2)
[2019-03-10] MEDS ORDERED: SODIUM CHLORIDE 0.9% 500 ML 500 ML IV ONE (07:05)
--- NOTE | 2019-03-10 07:09 | Emergency Department Report ---
ED General Adult HPI - General Chief complaint: Dizziness Stated complaint: BACK PAIN Time Seen by Provider: 03/10/19 05:41 Source: patient Mode of arrival: Ambulatory Limitations: No Limitations - History of Present Illness Initial comments: Pt is a 23 y/o male, with ESRD, dialysis M,W,F, who presents for dizziness , flank pain states he missed dialysis wed. there is no fever no n/v pt has not made urine this week, will obtain baseline labs and consult nephrology. Onset/Timin -: month(s) Severity scale (0 -10): 4 Quality: aching (flank pain ) Consistency: constant Improves with: none Worsens with: none Associated Symptoms: denies: chest pain, fever/chills, nausea/vomiting, shortness of breath Treatments Prior to Arrival: none - Related Data Previous Rx's Medication Instructions Recorded Last Taken Type amLODIPine 10 mg PO QDAY #30 tablet 11/18/18 Unknown Rx Allergies Allergy/AdvReac Type Severity Reaction Status Date / Time No Known Allergies Allergy Verified 11/14/18 14:49 ED Review of Systems ROS: Stated complaint: BACK PAIN Other details as noted in HPI Constitutional: denies: chills, fever Eyes: denies: eye pain, eye discharge, vision change ENT: denies: ear pain, throat pain Respiratory: denies: cough, shortness of breath, wheezing Cardiovascular: denies: chest pain, palpitations Endocrine: no symptoms reported Gastrointestinal: denies: abdominal pain, nausea, vomiting, diarrhea Genitourinary: denies: urgency, dysuria (I would go to go to), hematuria, dis charge Musculoskeletal: back pain (about pain.). denies: joint swelling, arthralgia Skin: denies: rash, lesions Neurological: denies: headache, weakness, paresthesias Psychiatric: denies: anxiety, depression Hematological/Lymphatic: denies: easy bleeding, easy bruising ED Past Medical Hx - Past Medical History Previous Medical History?: Yes Hx Diabetes: No Hx COPD: No - Surgical History Past Surgical History?: No - Social History Smoking Status: Never Smoker Substance Use Type: None - Medications Home Medications: Home Medications Medication Instructions Recorded Confirmed Last Taken Type amLODIPine 10 mg PO QDAY #30 tablet 11/18/18 Unknown Rx ED Physical Exam - General Limitations: No Limitations (he has) General appearance: alert, in no apparent distress - Head Head exam: Present: atraumatic, normocephalic - Eye Eye exam: Present: normal appearance - ENT ENT exam: Present: mucous membranes moist - Neck Neck exam: Present: normal inspection, full ROM - Respiratory Respiratory exam: Present: normal lung sounds bilaterally. Absent: respiratory distress, wheezes, stridor - Cardiovascular Cardiovascular Exam: Present: regular rate, normal rhythm, normal heart sounds. Absent: systolic murmur, diastolic murmur, rubs, gallop - GI/Abdominal GI/Abdominal exam: Present: soft, normal bowel sounds - Rectal Rectal exam: Present: deferred - Extremities Exam Extremities exam: Present: normal inspection - Back Exam Back exam: Present: normal inspection, full ROM. Absent: CVA tenderness (R), CVA tenderness (L) - Neurological Exam Neurological exam: Present: alert, oriented X3, CN II-XII intact, normal gait - Psychiatric Psychiatric exam: Present: normal affect - Skin Skin exam: Present: warm, dry, intact, normal color, other (right SC ubaldo cath ). Absent: rash ED Course Vital Signs 03/10/19 04:36 Temperature 97.4 F L Pulse Rate 102 H Respiratory 18 Rate Blood Pressure 116/73 O2 Sat by Pulse 97 Oximetry - Reevaluation(s) Reevaluation #1: Consult Nephrology Dr. Bishop. awaiting call back 03/10/19 07:03 Reevaluation #2: Consulted Hospitalist, will admit Dx: ESRD , will get dialysis today. 03/10/19 07:12 ED Medical Decision Making - Lab Data Result diagrams: 03/10/19 05:48 03/10/19 05:48 Labs 03/10/19 03/10/19 05:48 05:48 WBC 13.2 H RBC 4.36 Hgb 11.7 L Hct 34.2 L MCV 79 L MCH 27 L MCHC 34 RDW 12.9 L Plt Count 113 L Sodium 124 L Potassium 4.9 Chloride 83.1 L Carbon Dioxide 18 L Anion Gap 28 BUN 89 H Creatinine 9.5 H Estimated GFR 7 BUN/Creatinine Ratio 9 Glucose 114 H Calcium 7.8 L Total Bilirubin 0.40 AST 9 ALT 17 Alkaline Phosphatase 86 Total Protein 7.2 Albumin 4.0 Albumin/Globulin Ratio 1.3 - Medical Decision Making conulted Nephrology will write dialysis orders, recommendation admit to hospitalist, consulted hospitalist will admit to same. discussed tx plan , pt verbalized ageement and understanding of same. Critical care attestation.: If time is entered above; I have spent that time in minutes in the direct care of this critically ill patient, excluding procedure time. ED Disposition Clinical Impression: ESRD (end stage renal disease), Hyponatremia ARF (acute renal failure) Qualifiers: Acute renal failure type: unspecified Qualified Code(s): N17.9 - Acute kidney failure, unspecified Disposition: DC-09 OP ADMIT IP TO THIS HOSP Is pt being admited?: No Does the pt Need Aspirin: No Condition: Stable Instructions: Chronic Kidney Disease (ED) Time of Disposition: 07:25
--- NOTE | 2019-03-10 07:19 | XRay Report ---
CHEST 1 VIEW 03/10/2019 7:10 AM INDICATION / CLINICAL INFORMATION: cough. COMPARISON: 2 views of the chest from 03/03/2019. FINDINGS: SUPPORT DEVICES: A right internal jugular vein PermCath has been placed that terminates over the righ t atrium. HEART / MEDIASTINUM: No significant abnormality. LUNGS / PLEURA: No significant pulmonary or pleural abnormality. No pneumothorax. ADDITIONAL FINDINGS: No significant additional findings. IMPRESSION: 1. No acute abnormality of the chest. 2. Satisfactory positioning of a right internal jugular vein PermCath. Signer Name: Julian Berman MD Signed: 03/10/2019 7:14 AM Workstation Name: [id number]
[2019-03-10] MEDS ORDERED: SODIUM CHLORIDE 0.9% 100 ML IV PRN (08:00)
--- NOTE | 2019-03-10 10:11 | History and Physical Report ---
History of Present Illness Date of examination: 03/10/19 Date of admission: 03/10/19 07:27 Chief complaint: need HD History of present illness: Pt is a 23 y/o male, with ESRD, dialysis M,W,F, who presents as he states he missed dialysis thursday. He is self-funded and doesnot have outpt HD set up. Nephrology was called and arranged for HD. He usually gets his HD at [facility]. He is now started to spike fever. But he denies any fever at home, no n/v. He is being admitted for further evluation and mx. Patient does not make any urine. Past History Past Medical History: ESRD Past Surgical History: Other (perm cath placement) Social history: denies: smoking, alcohol abuse, IV drug use Family history: no significant family history Medications and Allergies Allergies Allergy/AdvReac Type Severity Reaction Status Date / Time No Known Allergies Allergy Verified 11/14/18 14:49 Home Medications Medication Instructions Recorded Confirmed Last Taken Type amLODIPine 10 mg PO QDAY #30 tablet 11/18/18 03/10/19 Unknown Rx Lisinopril 20 mg PO QDAY 03/10/19 03/10/19 Unknown History Active Meds: Active Medications Sodium Chloride (Nacl 0.9%) 100 mls @ 999 mls/hr IV ANGELY PRN PRN Reason: Hypotension Review of Systems Constitutional: no weight loss, no anorexia, no fatigue Ears, nose, mouth and throat: no ear discharge, no decreased hearing, no nasal congestion, no epistaxis, no bleeding gums, no voice changes Cardiovascular: no chest pain, no orthopnea, no lightheadedness Respiratory: no cough, no hemoptysis, no wheezing Gastrointestinal: no abdominal pain, no nausea, no vomiting Genitourinary Male: no dysuria, no flank pain Rectal: no incontinence, no bleeding Musculoskeletal: no neck stiffness Integumentary: no rash, no pruritis Neurological: no weakness, no parathesias, no numbness, no tingling Psychiatric: no anxiety, no memory loss Endocrine: no cold intolerance, no heat intolerance Hematologic/Lymphatic: no easy bruising, no easy bleeding Allergic/Immunologic: no urticaria, no angioedema Exam - Constitutional Vitals: Temp Pulse Resp BP Pulse Ox 98.1 F 80 18 94/61 97 03/10/19 07:34 03/10/19 08:01 03/10/19 08:01 03/10/19 08:01 03/10/19 07:52 General appearance: Present: no acute distress, well-nourished - EENT Eyes: Present: PERRL ENT: hearing intact, clear oral mucosa - Neck Neck: Present: supple, normal ROM - Respiratory Respiratory effort: normal Respiratory: bilateral: CTA - Cardiovascular Heart Sounds: Present: S1 & S2. Absent: rub, click - Extremities Extremities: pulses symmetrical, No edema Peripheral Pulses: within normal limits - Abdominal General gastrointestinal: Present: soft, non-tender, non-distended, normal bowel sounds - Integumentary Integumentary: Present: clear, warm, dry - Musculoskeletal Musculoskeletal: gait normal, strength equal bilaterally - Psychiatric Psychiatric: appropriate mood/affect, intact judgment & insight - Neurologic Neurologic: CNII-XII intact, moves all extremities Results - Labs CBC & Chem 7: 03/11/19 04:44 03/11/19 04:44 Labs: Abnormal lab results 03/10/19 03/10/19 Range/Units 05:48 05:48 WBC 13.2 H (4.5-11.0) K/mm3 Hgb 11.7 L (11.8-15.2) gm/dl Hct 34.2 L (35.5-45.6) % MCV 79 L (84-94) fl MCH 27 L (28-32) pg RDW 12.9 L (13.2-15.2) % Plt Count 113 L (140-440) K/mm3 Sodium 124 L (137-145) mmol/L Chloride 83.1 L (98-107) mmol/L Carbon Dioxide 18 L (22-30) mmol/L BUN 89 H (9-20) mg/dL Creatinine 9.5 H (0.8-1.5) mg/dL Glucose 114 H (75-100) mg/dL Calcium 7.8 L (8.4-10.2) mg/dL - Imaging and Cardiology Chest x-ray: report reviewed (no acute infiltrates) Assessment and Plan ESRD need HD SIRS with elevated white count, tachycardia and fever HTN, stable Hyponatremia, likely from hypervolumia Anemia of CD thrombocytopenia DVt Px - admit to [facility] - consult nephrology for HD - order blood cx, vancomycin empiric - resume home meds
[2019-03-10] MEDS: ACETAMINOPHEN 325 MG TAB PO PRN ×2 (10:55→17:04)
[2019-03-10 11:44] LABS: Hepatitis B Surface Antigen Non-Reactive (Negative); Hepatitis C Virus Antibody Non-Reactive (NonReactive)
[2019-03-10] MEDS ORDERED: SODIUM CHLORIDE*PRIMING MACHINE ONLY FOR DIALYSIS MC ONE (14:01)
[2019-03-10] MEDS ORDERED: VANCOMYCIN/NS 1 GM/250 ML 1 GM/250 ML BAG IV SCH (17:00)
[2019-03-10] MEDS ORDERED: VANCOMYCIN 1,500 MG in SODIUM CHLORIDE 0.9% 500 ML 500 ML IV ONE (17:45)
[2019-03-10] MEDS ORDERED: VANCOMYCIN PHARMACY TO DOSE IV SCH (18:00)
[2019-03-10 18:55] LABS: Bilirubin,Urine NEG (Negative); Blood,Urine SM (Negative); Color,Urine Yellow (Yellow)
[2019-03-10] MEDS: HEPARIN 5,000 UNIT/1 ML VIAL SUB-Q SCH (21:34)
[2019-03-11] MEDS: ACETAMINOPHEN 325 MG TAB PO PRN (01:18)
[2019-03-11 05:36] LABS: Hemoglobin 10.4 gm/dl (11.8-15.2); Mean Corpuscular HGB Conc 33 % (32-34); Mean Corpuscular Volume 79 fl (84-94); Red Blood Count 3.91 M/mm3 (3.65-5.03); Red Cell Distribution Width 12.7 % (13.2-15.2)
[2019-03-11 05:37] LABS: Platelet Count 95 K/mm3 (140-440)
[2019-03-11 05:41] LABS: Calcium 7.9 mg/dL (8.4-10.2)
[2019-03-11 06:26] LABS: Basophils % (Manual) 0 % (0.0-1.8); Eosinophils % (Manual) 0 % (0.0-4.3); Total Cells Counted 100
[2019-03-11 06:27] LABS: Anisocytosis Few; Platelet Estimate Consistent w Auto
[2019-03-11] MEDS ORDERED: NON-FORMULARY EACH (Lisinopril 20 MG) PO SCH (10:00)
[2019-03-11] MEDS ORDERED: amLODIPine 10 MG TAB PO SCH (10:00)
[2019-03-11] MEDS: HEPARIN 5,000 UNIT/1 ML VIAL SUB-Q SCH ×2 (10:42→23:09)
[2019-03-11] MEDS: FAMOTIDINE 10 MG TAB PO SCH (10:42)
--- NOTE | 2019-03-11 10:57 | Consultation ---
History of Present Illness - Reason for Consult chronic renal failure - History of Present Illness 23 y/o male with advanced CKD in the setting of biopsy proven IgA nephropathy with significant IFTA, who recently was initiated on HD, presented to the ER secondary to dialysis needs. Patient is undocumented and the ability to have patient set up for outpatient HD has been difficult. He was dialyzed yesterday as inpatient. He has been having fevers overnight, and his preliminary blood cultures are growing staph aureus. Pending final cultures. To note he has the RIJ permcath from his last hospitalization. Past History Past Medical History: dialysis, hypertension, renal failure Past Surgical History: No surgical history Social history: no significant social history Family history: hypertension Medications and Allergies Allergies Allergy/AdvReac Type Severity Reaction Status Date / Time No Known Allergies Allergy Verified 11/14/18 14:49 Home Medications Medication Instructions Recorded Confirmed Last Taken Type amLODIPine 10 mg PO QDAY #30 tablet 11/18/18 03/10/19 Unknown Rx Lisinopril 20 mg PO QDAY 03/10/19 03/10/19 Unknown History Active Meds: Active Medications Acetaminophen (Tylenol) 650 mg PO Q4H PRN PRN Reason: Pain MILD(1-3)/Fever >100.5/HERMOSILLO Last Admin: 03/11/19 01:18 Dose: 650 mg Documented by: Famotidine (Pepcid) 10 mg PO QDAY [facility] Last Admin: 03/11/19 10:42 Dose: 10 mg Documented by: Heparin Sodium (Porcine) (Heparin) 5,000 unit SUB-Q Q12HR [facility] Last Admin: 03/11/19 10:42 Dose: 5,000 unit Documented by: Sodium Chloride (Nacl 0.9%) 100 mls @ 999 mls/hr IV ANGELY PRN PRN Reason: Hypotension Review of Systems All systems: negative Constitutional: fever, fatigue Exam - Vital Signs Vital signs: Vital Signs Temp Pulse Resp BP Pulse Ox 97.4 F L 102 H 18 116/73 97 03/10/19 04:36 03/10/19 04:36 03/10/19 04:36 03/10/19 04:36 03/10/19 04:36 - General Appearance General appearance: well-developed, well-nourished, appears stated age EENT: ATNC, PERRL Neck: Present: neck supple, trachea midline Respiratory: Clear to Ascultation, Normal Exam Heart: regular, S1S2 Gastrointestinal: Present: normal, normoactive bowel sounds Integumentary: no rash, warm and dry Neurologic: no focal deficit, alert and oriented x3 Musculoskeletal: Present: deferred Psychiatric: mood/affect appropriate Results - Lab Results 03/11/19 04:44 03/11/19 04:44 Most recent lab results Calcium 7.9 mg/dL (8.4-10.2) L 03/11/19 04:44 Assessment and Plan - Patient Problems (1) CKD (chronic kidney disease) stage V requiring chronic dialysis Current Visit: Yes Status: Chronic Plan to address problem: Patient will continue on inpatient TTS HD schedule. (2) Staphylococcus aureus bacteremia Current Visit: Yes Status: Acute Plan to address problem: Pending final blood cultures. Continue antibiotics dosed appropriately for his level of diminished renal function. (3) IgA nephropathy determined by biopsy of kidney Current Visit: Yes Status: Acute Plan to address problem: Biopsy indicated significant chronicity/IFTA. Will continue current dialysis regimen. (4) Hypertensive chronic kidney disease with stage 5 chronic kidney disease or end stage renal disease Current Visit: Yes Status: Chronic Plan to address problem: Monitor with current regimen.
--- NOTE | 2019-03-11 14:33 | Progress Note ---
Assessment and Plan ESRD on HD -IgA nephropathy determined by biopsy of kidney Sepsis with elevated white count, tachycardia, fever and +ve blood cx Gm +ve bacteremia HTN, stable Hyponatremia, likely from hypervolumia Anemia of CD thrombocytopenia DVt Px - Monitor at [facility] - consulted nephrology for HD - follow blood cx, cont vancomycin empiric - resumed home meds, will consult ID when final cx data available Subjective Date of service: 03/11/19 Interval history: Patient seen and examined No acute event o/n, mostly afebrile has +ve blood cx 05/01 Objective - Constitutional General appearance: Present: no acute distress, well-nourished - EENT Eyes: PERRL, EOM intact ENT: hearing intact, clear oral mucosa Ears: bilateral: normal - Neck Neck: supple, normal ROM - Respiratory Respiratory effort: normal Respiratory: bilateral: CTA - Cardiovascular Rhythm: regular Heart Sounds: Present: S1 & S2. Absent: gallop, rub Extremities: pulses intact, No edema, normal color, Full ROM - Gastrointestinal General gastrointestinal: Present: soft, non-tender, non-distended, normal bowel sounds - Integumentary Integumentary: clear, warm, dry - Musculoskeletal Musculoskeletal: 1, strength equal bilaterally - Neurologic Neurologic: moves all extremities - Psychiatric Psychiatric: memory intact, appropriate mood/affect, intact judgment & insight - Labs CBC & Chem 7: 03/11/19 04:44 03/11/19 04:44 Labs: Abnormal lab results 03/10/19 03/11/19 03/11/19 Range/Units Unknown 04:44 04:44 WBC 12.1 H (4.5-11.0) K/mm3 Hgb 10.4 L (11.8-15.2) gm/dl Hct 31.0 L (35.5-45.6) % MCV 79 L (84-94) fl MCH 26 L (28-32) pg RDW 12.7 L (13.2-15.2) % Plt Count 95 L (140-440) K/mm3 Seg Neuts % (Manual) 87.0 H (40.0-70.0) % Lymphocytes % (Manual) 7.0 L (13.4-35.0) % Seg Neutrophils # Man 10.5 H (1.8-7.7) K/mm3 Lymphocytes # (Manual) 0.8 L (1.2-5.4) K/mm3 Sodium 132 L D (137-145) mmol/L Chloride 95.0 L (98-107) mmol/L BUN 49 H (9-20) mg/dL Creatinine 6.9 H (0.8-1.5) mg/dL Glucose 123 H (75-100) mg/dL Calcium 7.9 L (8.4-10.2) mg/dL Urine pH 9.0 H (5.0-7.0)
[2019-03-12] MEDS ORDERED: SODIUM CHLORIDE*PRIMING MACHINE ONLY FOR DIALYSIS MC ONE ×2 (11:07→13:27)
--- NOTE | 2019-03-12 11:20 | Progress Note ---
Assessment and Plan ESRD on HD -IgA nephropathy determined by biopsy of kidney - Continue a steeper nephrology Sepsis with elevated white count, tachycardia, fever and +ve blood cx Gm +ve bacteremia - Continue vancomycin, culture growing staph aureus, sensitivity pending - ID consulted, need perm cath Removal - we'll consult vascular HTN, stable - continue to monitor Hyponatremia, likely from hypervolumia, resolved with HD Anemia of CD, monitor CBC thrombocytopenia, continue to monitor DVt Px, with hypertension Subjective Date of service: 03/12/19 Interval history: Patient seen and examined No acute event o/n, mostly afebrile has +ve blood cx / with staph aureus -final drug sensitivity pending Objective - Exam Narrative Exam: - Constitutional General appearance: Present: no acute distress, well-nourished - EENT Eyes: PERRL, EOM intact ENT: hearing intact, clear oral mucosa Ears: bilateral: normal - Neck Neck: supple, normal ROM - Respiratory Respiratory effort: normal Respiratory: bilateral: CTA - Cardiovascular Rhythm: regular Heart Sounds: Present: S1 & S2. Absent: gallop, rub Extremities: pulses intact, No edema, normal color, Full ROM Perm cath In place on the right IJ site - Gastrointestinal General gastrointestinal: Present: soft, non-tender, non-distended, normal bowel sounds - Integumentary Integumentary: clear, warm, dry - Musculoskeletal Musculoskeletal: 1, strength equal bilaterally - Neurologic Neurologic: moves all extremities - Psychiatric Psychiatric: memory intact, appropriate mood/affect, intact judgment & insight - Constitutional Vitals: Vital Signs - 12hr 03/12/19 06:17 Temperature 97.9 F Pulse Rate 62 Respiratory 18 Rate Blood Pressure 114/60 O2 Sat by Pulse 98 Oximetry - Labs CBC & Chem 7: 03/11/19 04:44 03/11/19 04:44
--- NOTE | 2019-03-12 11:55 | Progress Note ---
Assessment and Plan - Patient Problems (1) CKD (chronic kidney disease) stage V requiring chronic dialysis Current Visit: Yes Status: Chronic Plan to address problem: Patient will continue on inpatient TTS HD schedule. (2) Staphylococcus aureus bacteremia Current Visit: Yes Status: Acute Plan to address problem: Blood cultures 2/2 growing staph aureus. Pending ID consult. Continue antibiotics dosed appropriately for his level of diminished renal fun ction. If it is MSSA, and he remains afebrile, and otherwise asymptomatic, without any signs of catheter tract infection, hope is that we will be able to keep current catheter in place. Will await further recommendations per ID. (3) IgA nephropathy determined by biopsy of kidney Current Visit: Yes Status: Acute Plan to address problem: Biopsy indicated significant chronicity/IFTA. Will continue current dialysis regimen. (4) Hypertensive chronic kidney disease with stage 5 chronic kidney disease or end stage renal disease Current Visit: Yes Status: Chronic Plan to address problem: Monitor with current regimen. Subjective Date of service: 03/12/19 Interval history: Patient seen at HD without any acute complaints. Blood Cx 2/2 growing staph auerus. Patient is afebrile at this time, and permcath site is clean/dry, no drainage, no signs of infection. Objective - Vital Signs Vital signs: Vital Signs - 12hr 03/12/19 03/12/19 03/12/19 06:17 11:15 11:30 Temperature 97.9 F 97.9 F Pulse Rate 62 54 L 57 L Respiratory 18 18 Rate Blood Pressure 114/60 114/72 131/73 O2 Sat by Pulse 98 Oximetry - General Appearance General appearance: well-developed, well-nourished, appears stated age EENT: ATNC, PERRL Neck: no JVD, no thyromegaly Respiratory: Present: Clear to Ascultation, Normal Exam Cardiology: regular, S1S2 Gastrointestinal: normal, normoactive bowel sounds Integumentary: no rash, warm and dry Neurologic: no focal deficit, alert and oriented x3 Musculoskeletal: deferred Psychiatric: mood/affect appropriate - Lab 03/11/19 04:44 03/11/19 04:44 Most recent lab results Calcium 7.9 mg/dL (8.4-10.2) L 03/11/19 04:44 - Allied health notes Allied health notes reviewed: nursing Medications & Allergies - Medications Allergies/Adverse Reactions: Allergies No Known Allergies Allergy (Verified 11/14/18 14:49) Home Medications: Home Medications Medication Instructions Recorded Confirmed Last Taken Type amLODIPine 10 mg PO QDAY #30 tablet 11/18/18 03/10/19 Unknown Rx Lisinopril 20 mg PO QDAY 03/10/19 03/10/19 Unknown History Active Medications: Generic Name Dose Route Start Last Admin Trade Name Freq PRN Reason Stop Dose Admin Acetaminophen 650 mg 03/10/19 10:15 03/11/19 01:18 Tylenol PO 650 mg Q4H PRN Administration Pain MILD(1-3)/Fever >100.5/HERMOSILLO Famotidine 10 mg 03/11/19 10:00 03/11/19 10:42 Pepcid PO 10 mg QDAY SEBLE Administration Heparin Sodium (Porcine) 5,000 unit 03/10/19 22:00 03/11/19 23:09 Heparin SUB-Q 5,000 unit Q12HR SEBLE Administration Sodium Chloride 100 mls @ 999 mls/hr 03/10/19 08:00 Nacl 0.9% IV ANGELY PRN Hypotension
--- NOTE | 2019-03-12 13:26 | Consultation ---
History of Present Illness - Reason for Consult Consult date: 03/12/19 Bacteremia, ESRD Requesting physician: JOE THOMAS - History of Present Illness The patient is a 23/M with advanced CKD in the setting of biopsy proven IgA nephropathy, recently started dialysis, had permCath placed about a week ago was admitted here due to need for dialysis. Upon admission, also noted to be febrile. Blood cultures are positive, hence ID was consulted. Reports no complaints, seen at dialysis. Review of Systems: General: fever + HEENT: no new visual disturbance Respiratory: No cough, sputum, hemoptysis or shortness of breath Cardiovascular: No chest pain, syncope Gastrointestinal: No nausea, vomiting or diarrhea Genitourinary: No dysuria or hematuria Musculoskeletal: No new or worsening neck pain or back pain Neurologic: No headaches, seizures Hematologic: No easy bruising, no bleeding Endocrine: No night sweats or acute weight loss Skin: no jaundice, no rash Psychiatric: No suicidal or homicidal ideation Past History Past Medical History: ESRD Past Surgical History: Other (perm cath placement) Social history: denies: smoking, alcohol abuse, IV drug use Family history: no significant family history Medications and Allergies Allergies Allergy/AdvReac Type Severity Reaction Status Date / Time No Known Allergies Allergy Verified 11/14/18 14:49 Home Medications Medication Instructions Recorded Confirmed Last Taken Type amLODIPine 10 mg PO QDAY #30 tablet 11/18/18 03/10/19 Unknown Rx Lisinopril 20 mg PO QDAY 03/10/19 03/10/19 Unknown History Active Meds: Active Medications Acetaminophen (Tylenol) 650 mg PO Q4H PRN PRN Reason: Pain MILD(1-3)/Fever >100.5/HERMOSILLO Last Admin: 03/11/19 01:18 Dose: 650 mg Documented by: Famotidine (Pepcid) 10 mg PO QDAY [facility] Last Admin: 03/11/19 10:42 Dose: 10 mg Documented by: Heparin Sodium (Porcine) (Heparin) 5,000 unit SUB-Q Q12HR [facility] Last Admin: 03/11/19 23:09 Dose: 5,000 unit Documented by: Sodium Chloride (Nacl 0.9%) 100 mls @ 999 mls/hr IV ANGELY PRN PRN Reason: Hypotension Physical Examination - Physical Exam Narrative exam: Constitutional: Alert, cooperative. No acute distress. Head, Ears, Nose: Normocephalic, atraumatic. External ears, nose normal Eyes: Conjunctivae/corneas clear. No icterus. No ptosis. Neck: Supple, no meningeal signs Oral: no thrush Cardiovascular: S1, S2 normal. Respiratory: Good air entry, clear to auscultation bilaterally GI: soft, non tender, bowel sounds normal. No peritoneal signs. Musculoskeletal: No pedal edema, no cyanosis. HD cath + Skin: no rash Hem/Lymphatic: No palpable cervical or supraclavicular nodes. No lymphangitis Psych: Mood ok. Affect normal Neurological: Awake, alert, oriented. No gross abnormality - Constitutional Vitals: Vital Signs Temp Pulse Resp BP Pulse Ox 97.9 F 57 L 18 131/73 98 03/12/19 11:15 03/12/19 11:30 03/12/19 11:15 03/12/19 11:30 03/12/19 06:17 Temperature -Last 24 Hours Temperature 97.9 F Temperature 97.9 F Temperature 98.3 F Temperature 97.8 F Temperature 97.8 F Results - Labs CBC & Chem 7: 03/11/19 04:44 03/11/19 04:44 - Imaging and Cardiology Chest x-ray: report reviewed, image reviewed (no pneumonia) Assessment and Plan Microbiology: 03/10/2019 Blood culture: Staph aureus A/P: 23/M with advanced CKD in the setting of biopsy proven IgA nephropathy, recently started dialysis, had permCath placed about a week ago now with: 1) Sepsis, Staph aureus bacteremia, likely source is HD cath 2) ESRD on HD Recs: Needs HD cath removal Repeat blood cultures ordered Continue IV Vancomycin post HD, renally adjusted for now Can only place new permcath once bacteremia is cleared f/u TTE results Wade Neff MD, FACP [facility]
[2019-03-12] MEDS: FAMOTIDINE 10 MG TAB PO SCH (15:58)
[2019-03-12] MEDS: HEPARIN 5,000 UNIT/1 ML VIAL SUB-Q SCH ×2 (15:59→23:27)
[2019-03-12] MEDS: ACETAMINOPHEN 325 MG TAB PO PRN (15:59)
[2019-03-13] MEDS ORDERED: VANCOMYCIN 1,250 MG in SODIUM CHLORIDE 0.9% 250ML 250 ML IV ONE (08:00)
[2019-03-13] MEDS: HEPARIN 5,000 UNIT/1 ML VIAL SUB-Q SCH ×2 (11:03→22:13)
[2019-03-13] MEDS: FAMOTIDINE 10 MG TAB PO SCH (11:03)
--- NOTE | 2019-03-13 12:17 | Progress Note ---
Assessment and Plan Microbiology: 03/10/2019 Blood culture: MRSA 03/12/2019 Blood culture: in process A/P: 23/M with advanced CKD in the setting of biopsy proven IgA nephropathy, recently started dialysis, had permCath placed about a week ago now with: 1) Sepsis, MRSA bacteremia, likely source is HD cath: 2) ESRD on HD Recs: Needs HD cath removal f/u repeat blood cultures Continue IV Vancomycin post HD, renally adjusted Can only place new permcath once bacteremia is cleared f/u TTE results (done but report pending) d/w Dr. Putnam. Wade Neff MD, [facility] Subjective Date of service: 03/13/19 Interval history: No fever. No complaints. Still has HD cath in place. Objective - Exam Narrative Exam: Constitutional: Alert, cooperative. No acute distress. Head, Ears, Nose: Normocephalic, atraumatic. External ears, nose normal Eyes: Conjunctivae/corneas clear. No icterus. No ptosis. Neck: Supple, no meningeal signs Oral: no thrush Cardiovascular: S1, S2 normal. Respiratory: Good air entry, clear to auscultation bilaterally GI: soft, non tender, bowel sounds normal. No peritoneal signs. Musculoskeletal: No pedal edema, no cyanosis. HD cath + Skin: no rash Hem/Lymphatic: No palpable cervical or supraclavicular nodes. No lymphangitis Psych: Mood ok. Affect normal Neurological: Awake, alert, oriented. No gross abnormality - Constitutional Vitals: Vital Signs Temp Pulse Resp BP Pulse Ox 99.2 F 69 18 114/63 98 03/12/19 16:55 03/12/19 16:55 03/12/19 16:55 03/12/19 16:55 03/12/19 16:55 Temperature -Last 24 Hours Temperature 99.2 F Temperature 98.0 F - Labs CBC & Chem 7: 03/11/19 04:44 03/11/19 04:44
--- NOTE | 2019-03-13 13:06 | Progress Note ---
Assessment and Plan - Patient Problems (1) CKD (chronic kidney disease) stage V requiring chronic dialysis Current Visit: Yes Status: Chronic Plan to address problem: Patient will continue on inpatient TTS HD schedule. (2) Staphylococcus aureus bacteremia Current Visit: Yes Status: Acute Plan to address problem: Blood cultures 2/2 growing staph aureus. Continue antibiotics dosed appropriately for his level of diminished renal function. ID consult reviewed and the plan is for a permacath removal and line holiday. Hoping that within the next 24-48 hours if blood cultures continue to be negative we'll be able to replace the aforementioned PermCath. He has no acute indications for hemodialysis at this time and we will closely monitor with daily labs. (3) IgA nephropathy determined by biopsy of kidney Current Visit: Yes Status: Acute Plan to address problem: Biopsy indicated significant chronicity/IFTA. Will continue current dialysis regimen. (4) Hypertensive chronic kidney disease with stage 5 chronic kidney disease or end stage renal disease Current Visit: Yes Status: Chronic Plan to address problem: Monitor with current regimen. Subjective Date of service: 03/13/19 Interval history: Blood cultures growing staph aureus bacteremia. MRSA negative. ID evaluation noted and plan for permanent catheter removal and line holiday. Patient tolerated hemodialysis well yesterday without any issues. Labs noted and there are no acute indications for hemodialysis today. Objective - Vital Signs Vital signs: Vital Signs - 12hr 03/13/19 03/13/19 06:16 12:53 Temperature 97.9 F 99.2 F Pulse Rate 63 58 L Respiratory 18 16 Rate Blood Pressure 129/78 114/73 O2 Sat by Pulse 99 98 Oximetry - General Appearance General appearance: well-developed, well-nourished, appears stated age EENT: ATNC, PERRL Neck: no JVD, no thyromegaly Respiratory: Present: Clear to Ascultation Cardiology: regular, normal heart rate, S1S2 Gastrointestinal: normal, normoactive bowel sounds Integumentary: no rash, warm and dry Neurologic: no focal deficit, alert and oriented x3 Musculoskeletal: deferred Psychiatric: mood/affect appropriate, cooperative - Lab 03/11/19 04:44 03/11/19 04:44 Most recent lab results Calcium 7.9 mg/dL (8.4-10.2) L 03/11/19 04:44 - Allied health notes Allied health notes reviewed: nursing Medications & Allergies - Medications Allergies/Adverse Reactions: Allergies No Known Allergies Allergy (Verified 11/14/18 14:49) Home Medications: Home Medications Medication Instructions Recorded Confirmed Last Taken Type amLODIPine 10 mg PO QDAY #30 tablet 11/18/18 03/10/19 Unknown Rx Lisinopril 20 mg PO QDAY 03/10/19 03/10/19 Unknown History Active Medications: Generic Name Dose Route Start Last Admin Trade Name Freq PRN Reason Stop Dose Admin Acetaminophen 650 mg 03/10/19 10:15 03/12/19 15:59 Tylenol PO 650 mg Q4H PRN Administration Pain MILD(1-3)/Fever >100.5/HERMOSILLO Famotidine 10 mg 03/11/19 10:00 03/13/19 11:03 Pepcid PO 10 mg QDAY SEBLE Administration Heparin Sodium (Porcine) 5,000 unit 03/10/19 22:00 03/13/19 11:03 Heparin SUB-Q 5,000 unit Q12HR SEBLE Administration Sodium Chloride 100 mls @ 999 mls/hr 03/10/19 08:00 Nacl 0.9% IV ANGELY PRN Hypotension
--- NOTE | 2019-03-13 13:42 | Progress Note ---
Assessment and Plan Sepsis with elevated white count, tachycardia, fever and +ve blood cx Gm +ve bacteremia - Continue vancomycin, culture growing MRSA - ID consulted, need perm cath Removal - we'll consult vascular - f/u repeat blood cultures - Can only place new permcath once bacteremia is cleared - f/u TTE results (done but report pending) ESRD on HD -IgA nephropathy determined by biopsy of kidney - Continue a steeper nephrology HTN, stable - continue to monitor Hyponatremia, likely from hypervolumia, resolved with HD Anemia of CD, monitor CBC thrombocytopenia, continue to monitor DVt Px, with hypertension Subjective Date of service: 03/13/19 Interval history: Patient seen and examined No acute event o/n, mostly afebrile has +ve blood cx 2/2 with staph aureus -MRSA Objective - Exam Narrative Exam: - Constitutional General appearance: Present: no acute distress, well-nourished - EENT Eyes: PERRL, EOM intact ENT: hearing intact, clear oral mucosa Ears: bilateral: normal - Neck Neck: supple, normal ROM - Respiratory Respiratory effort: normal Respiratory: bilateral: CTA - Cardiovascular Rhythm: regular Heart Sounds: Present: S1 & S2. Absent: gallop, rub Extremities: pulses intact, No edema, normal color, Full ROM Perm cath In place on the right IJ site - Gastrointestinal General gastrointestinal: Present: soft, non-tender, non-distended, normal bowel sounds - Integumentary Integumentary: clear, warm, dry - Musculoskeletal Musculoskeletal: 1, strength equal bilaterally - Neurologic Neurologic: moves all extremities - Psychiatric Psychiatric: memory intact, appropriate mood/affect, intact judgment & insight - Constitutional Vitals: Vital Signs - 12hr 03/13/19 03/13/19 06:16 12:53 Temperature 97.9 F 99.2 F Pulse Rate 63 58 L Respiratory 18 16 Rate Blood Pressure 129/78 114/73 O2 Sat by Pulse 99 98 Oximetry - Labs CBC & Chem 7: 03/11/19 04:44 03/11/19 04:44
[2019-03-13] MEDS: ACETAMINOPHEN 325 MG TAB PO PRN (14:33)
--- NOTE | 2019-03-13 16:08 | Event Note ---
Date: 03/13/19 Recently placed permcath at [place] in patient who presents with bacteremia (MRSA) and fever. Removed permcath at bedside. No further fevers. Plan for permcath placement thursday to allow for some time between catheter removal and new catheter placement. NPO after MN thursday except sips of water for thursday.
--- NOTE | 2019-03-13 16:10 | Operative Report ---
Operative Report Operative Report: EXAM: Tunneled catheter removal DATE: 03/13/19 INDICATION: Bacteremia with indwelling hemodialysis catheter. MEDICATIONS: Please see nursing report for full details. HORTICULTURALIST: MICHELLE HENDERSON MD CONTRAST: None PROCEDURE: The risks, benefits, and alternatives were discussed; written informed consent was obtained. The patient was positioned with the head towards the contralateral side. The tunneled catheter was prepped and draped in a sterile fashion. Lidocaine was infiltrated at the dermatotomy site. Heparin was withdrawn from both lumens. Using a hemostat, blunt dissection was performed and the cuff was extracted. The catheter was extracted and pressure was held at the venotomy and dermatotomy site until hemostasis was achieved. Sterile bandage was then applied. The patient tolerated the procedure without issue. FINDINGS: Successful removal of the tunneled catheter. IMPRESSION: Successful removal of the right internal jugular tunneled catheter.
[2019-03-14] MEDS: FAMOTIDINE 10 MG TAB PO SCH (10:06)
[2019-03-14] MEDS: HEPARIN 5,000 UNIT/1 ML VIAL SUB-Q SCH (10:06)
[2019-03-14 11:10] LABS: Basophils % (Auto) 0.8 % (0.0-1.8); Eosinophils # (Auto) 0.1 K/mm3 (0.0-0.4); Eosinophils % (Auto) 1.3 % (0.0-4.3); Hematocrit 29.5 % (35.5-45.6); Hemoglobin 9.9 gm/dl (11.8-15.2); Lymphocytes # (Auto) 0.9 K/mm3 (1.2-5.4); Lymphocytes % (Auto) 16.3 % (13.4-35.0); Mean Corpuscular HGB Conc 33 % (32-34); Mean Corpuscular Volume 81 fl (84-94); Monocytes # (Auto) 0.5 K/mm3 (0.0-0.8); Monocytes % (Auto) 8.3 % (0.0-7.3); Platelet Count 159 K/mm3 (140-440); Red Blood Count 3.65 M/mm3 (3.65-5.03); Red Cell Distribution Width 13.3 % (13.2-15.2)
--- NOTE | 2019-03-14 11:10 | Progress Note ---
Assessment and Plan - Patient Problems (1) Bacteremia due to methicillin resistant Staphylococcus aureus Current Visit: Yes Status: Acute Plan to address problem: Continue antibiotics. Repeat blood cultures negative. (2) Anemia in end-stage renal disease Current Visit: Yes Status: Acute Plan to address problem: Continue erythropoietin on dialysis. (3) ESRD (end stage renal disease) Current Visit: Yes Status: Acute Plan to address problem: Hemodialysis, on a Thursday, and Thursday schedule (4) Hyponatremia Current Visit: Yes Status: Acute Plan to address problem: Follow-up sodium (5) IgA nephropathy determined by biopsy of kidney Current Visit: Yes Status: Acute Plan to address problem: End-stage renal disease secondary to IgA nephropathy biopsy-proven (6) Hypertensive chronic kidney disease with stage 5 chronic kidney disease or end stage renal disease Current Visit: Yes Status: Chronic Plan to address problem: Follow blood pressure on current medications. Subjective Date of service: 03/14/19 Principal diagnosis: end-stage renal disease Interval history: Patient's seen lying in bed. He has no complaints. Denies any chest pain, shortness of breath Objective - Exam Narrative Exam: Young male lying in bed in no acute distress HEENT: NCAT, pink oral mucous membrane Neck: Supple, no venous distention CVS: S1S2 RRR with no murmur, rub or gallop Chest: Clear to auscultation Abdomen: Protuberant, soft, nontender, no organomegaly, bowel sounds are present Extremities: No edema Neuro: Awake, alert no focal deficits - Vital Signs Vital signs: Vital Signs - 12hr 03/13/19 03/14/19 23:48 06:13 Temperature 98.4 F 98.0 F Pulse Rate 73 60 Respiratory 18 18 Rate Blood Pressure 123/59 125/68 O2 Sat by Pulse 98 97 Oximetry - Lab 03/14/19 10:04 03/14/19 10:04 Most recent lab results Calcium 7.9 mg/dL (8.4-10.2) L 03/11/19 04:44 Medications & Allergies - Medications Allergies/Adverse Reactions: Allergies No Known Allergies Allergy (Verified 11/14/18 14:49) Active Medications: Generic Name Dose Route Start Last Admin Trade Name Freq PRN Reason Stop Dose Admin Acetaminophen 650 mg 03/10/19 10:15 03/13/19 14:33 Tylenol PO 650 mg Q4H PRN Administration Pain MILD(1-3)/Fever >100.5/HERMOSILLO Famotidine 10 mg 03/11/19 10:00 03/14/19 10:06 Pepcid PO 10 mg QDAY SEBLE Administration Heparin Sodium (Porcine) 5,000 unit 03/10/19 22:00 03/14/19 10:06 Heparin SUB-Q 5,000 unit Q12HR SEBLE Administration Sodium Chloride 100 mls @ 999 mls/hr 03/10/19 08:00 Nacl 0.9% IV ANGELY PRN Hypotension
--- NOTE | 2019-03-14 13:39 | Progress Note ---
Assessment and Plan Microbiology: 03/10/2019 Blood culture: MRSA 03/12/2019 Blood culture: 1/4 CoNS 03/14/2019 Blood culture: in process A/P: 23/M with advanced CKD in the setting of biopsy proven IgA nephropathy, recently started dialysis, had permCath placed about a week ago now with: 1) Sepsis, MRSA bacteremia, likely source is HD cath: will need 4 weeks of vancomycin with dialysis. Cath removed 03/13/19 2) ESRD on HD 3) IgA nephropathy 4) CoNS bacteremia - contaminant Recs: f/u repeat blood cultures Continue IV Vancomycin post HD, renally adjusted - stop date now planned for 04/10/2019 Case management order placed. Ok to place new dialysis line tomorrow, 03/15/19 (48 hours post old line removal) Echo without vegetation Thank you for the consult, will follow. Dary Beth MD [facility] ([facility]) M: [phone] O: [phone] F: [phone] Objective - Exam Narrative Exam: Narrative Exam: Constitutional: Alert, cooperative. No acute distress. Head, Ears, Nose: Normocephalic, atraumatic. External ears, nose normal Eyes: Conjunctivae/corneas clear. No icterus. No ptosis. Neck: Supple, no meningeal signs Oral: no thrush Cardiovascular: S1, S2 normal. Respiratory: Good air entry, clear to auscultation bilaterally GI: soft, non tender, bowel sounds normal. No peritoneal signs. Musculoskeletal: No pedal edema, no cyanosis. HD cath + Skin: no rash Hem/Lymphatic: No palpable cervical or supraclavicular nodes. No lymphangitis Psych: Mood ok. Affect normal Neurological: Awake, alert, oriented. No gross abnormality - Constitutional Vitals: Vital Signs Temp Pulse Resp BP Pulse Ox 98.3 F 62 20 121/74 99 03/14/19 11:55 03/14/19 11:55 03/14/19 11:55 03/14/19 11:55 03/14/19 11:55 Temperature -Last 24 Hours Temperature 98.3 F Temperature 98.0 F Temperature 98.4 F Temperature 98.8 F - Labs CBC & Chem 7: 03/14/19 10:04 03/14/19 10:04 Labs: Abnormal lab results 03/14/19 03/14/19 Range/Units 10:04 10:04 Hgb 9.9 L (11.8-15.2) gm/dl Hct 29.5 L (35.5-45.6) % MCV 81 L (84-94) fl MCH 27 L (28-32) pg [place] % (Auto) 8.3 H (0.0-7.3) % Lymph # 0.9 L (1.2-5.4) K/mm3 Seg Neutrophils % 73.3 H (40.0-70.0) % Sodium 135 L (137-145) mmol/L Chloride 96.4 L (98-107) mmol/L Carbon Dioxide 18 L (22-30) mmol/L BUN 55 H (9-20) mg/dL Creatinine 6.7 H (0.8-1.5) mg/dL Calcium 8.0 L (8.4-10.2) mg/dL
--- NOTE | 2019-03-14 13:48 | Progress Note ---
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 - Continue a steeper nephrology HTN, stable - continue to monitor Hyponatremia, likely from hypervolumia, resolved with HD Anemia of CD, monitor CBC thrombocytopenia, continue to monitor DVt Px, with hypertension Disposition: Need renally adjusted vancomycin during HD till 04/10/2019 Subjective Date of service: 03/14/19 Interval history: Patient seen and examined No acute event o/n, mostly afebrile has +ve blood cx / with staph aureus -MRSA Removed old perm cath, new one to place tomorrow Objective - Exam Narrative Exam: - Constitutional General appearance: Present: no acute distress, well-nourished - EENT Eyes: PERRL, EOM intact ENT: hearing intact, clear oral mucosa Ears: bilateral: normal - Neck Neck: supple, normal ROM - Respiratory Respiratory effort: normal Respiratory: bilateral: CTA - Cardiovascular Rhythm: regular Heart Sounds: Present: S1 & S2. Absent: gallop, rub Extremities: pulses intact, No edema, normal color, Full ROM - Gastrointestinal General gastrointestinal: Present: soft, non-tender, non-distended, normal bowel sounds - Integumentary Integumentary: clear, warm, dry - Musculoskeletal Musculoskeletal: 1, strength equal bilaterally - Neurologic Neurologic: moves all extremities - Psychiatric Psychiatric: memory intact, appropriate mood/affect, intact judgment & insight - Constitutional Vitals: Vital Signs - 12hr 03/14/19 03/14/19 06:13 11:55 Temperature 98.0 F 98.3 F Pulse Rate 60 62 Respiratory 18 20 Rate Blood Pressure 125/68 121/74 O2 Sat by Pulse 97 99 Oximetry - Labs CBC & Chem 7: 03/14/19 10:04 03/14/19 10:04 Labs: Abnormal lab results 03/14/19 03/14/19 Range/Units 10:04 10:04 Hgb 9.9 L (11.8-15.2) gm/dl Hct 29.5 L (35.5-45.6) % MCV 81 L (84-94) fl MCH 27 L (28-32) pg Cobb % (Auto) 8.3 H (0.0-7.3) % Lymph # 0.9 L (1.2-5.4) K/mm3 Seg Neutrophils % 73.3 H (40.0-70.0) % Sodium 135 L (137-145) mmol/L Chloride 96.4 L (98-107) mmol/L Carbon Dioxide 18 L (22-30) mmol/L BUN 55 H (9-20) mg/dL Creatinine 6.7 H (0.8-1.5) mg/dL Calcium 8.0 L (8.4-10.2) mg/dL
[2019-03-15] MEDS: HEPARIN 5,000 UNIT/1 ML VIAL SUB-Q SCH ×2 (00:12→11:01)
--- NOTE | 2019-03-15 08:51 | Progress Note ---
Assessment and Plan - Patient Problems (1) Bacteremia due to methicillin resistant Staphylococcus aureus Current Visit: Yes Status: Acute Plan to address problem: Continue antibiotics. Repeat blood cultures negative. (2) Hyponatremia Current Visit: Yes Status: Acute Plan to address problem: Sodium improved. Follow-up sodium (3) Hypertensive chronic kidney disease with stage 5 chronic kidney disease or end stage renal disease Current Visit: Yes Status: Chronic Plan to address problem: Follow blood pressure on current medications. (4) Anemia in end-stage renal disease Current Visit: Yes Status: Acute Plan to address problem: Continue erythropoietin on dialysis. (5) ESRD (end stage renal disease) Current Visit: Yes Status: Acute Plan to address problem: Hemodialysis, on a Thursday, and Thursday schedule Subjective Date of service: 03/15/19 Principal diagnosis: end-stage renal disease Interval history: Patient's seen lying in bed. He has no complaints. Denies any chest pain, shortness of breath, nausea or vomiting Objective - Exam Narrative Exam: Young male lying in bed in no acute distress HEENT: NCAT, pink oral mucous membrane Neck: Supple, no venous distention CVS: S1S2 RRR with no murmur, rub or gallop Chest: Clear to auscultation Abdomen: Protuberant, soft, nontender, no organomegaly, bowel sounds are present Extremities: No edema Neuro: Awake, alert no focal deficits - Vital Signs Vital signs: Vital Signs - 12hr 03/14/19 03/15/19 03/15/19 21:21 05:49 08:00 Temperature 98.0 F 97.9 F Pulse Rate 61 66 Respiratory 18 24 Rate Blood Pressure 120/64 122/82 O2 Sat by Pulse 97 97 97 Oximetry - Lab 03/14/19 10:04 03/14/19 10:04 Most recent lab results Calcium 8.0 mg/dL (8.4-10.2) L 03/14/19 10:04 Medications & Allergies - Medications Allergies/Adverse Reactions: Allergies No Known Allergies Allergy (Verified 11/14/18 14:49) Active Medications: Generic Name Dose Route Start Last Admin Trade Name Freq PRN Reason Stop Dose Admin Acetaminophen 650 mg 03/10/19 10:15 03/13/19 14:33 Tylenol PO 650 mg Q4H PRN Administration Pain MILD(1-3)/Fever >100.5/HERMOSILLO Famotidine 10 mg 03/11/19 10:00 03/14/19 10:06 Pepcid PO 10 mg QDAY SEBLE Administration Heparin Sodium (Porcine) 5,000 unit 03/10/19 22:00 03/15/19 00:12 Heparin SUB-Q Not Given Q12HR [facility] Sodium Chloride 100 mls @ 999 mls/hr 03/10/19 08:00 Nacl 0.9% IV ANGELY PRN Hypotension
[2019-03-15] MEDS: FAMOTIDINE 10 MG TAB PO SCH (10:59)
--- NOTE | 2019-03-15 11:40 | Progress Note ---
Assessment and Plan Microbiology: 03/10/2019 Blood culture: MRSA 03/12/2019 Blood culture: 1/4 CoNS 03/14/2019 Blood culture: in process A/P: 23/M with advanced CKD in the setting of biopsy proven IgA nephropathy, recently started dialysis, had permCath placed about a week ago now with: 1) Sepsis, MRSA bacteremia, likely source is HD cath: will need 4 weeks of vancomycin with dialysis. Cath removed 03/13/19 2) ESRD on HD 3) IgA nephropathy 4) CoNS bacteremia - contaminant Recs: f/u repeat blood cultures Continue IV Vancomycin post HD, renally adjusted - stop date now planned for 04/10/2019 Case management order placed - noted that as patient is undocumented, no home care or antibiotics able to be given with discharge. Recommend completing inpatient IV vancomycin course. Ok to place new dialysis line tomorrow, 03/15/19 (48 hours post old line removal) Echo without vegetation Thank you for the consult, will follow. Dary Beth MD [facility] M: [phone] O: [phone] F: [phone] Subjective Date of service: 03/15/19 Interval history: AF, normal white count. Objective - Exam Narrative Exam: Narrative Exam: Constitutional: Alert, cooperative. No acute distress. Head, Ears, Nose: Normocephalic, atraumatic. External ears, nose normal Eyes: Conjunctivae/corneas clear. No icterus. No ptosis. Neck: Supple, no meningeal signs Oral: no thrush Cardiovascular: S1, S2 normal. Respiratory: Good air entry, clear to auscultation bilaterally GI: soft, non tender, bowel sounds normal. No peritoneal signs. Musculoskeletal: No pedal edema, no cyanosis. HD cath + Skin: no rash Hem/Lymphatic: No palpable cervical or supraclavicular nodes. No lymphangitis Psych: Mood ok. Affect normal Neurological: Awake, alert, oriented. No gross abnormality - Constitutional Vitals: Vital Signs Temp Pulse Resp BP Pulse Ox 97.9 F 66 24 122/82 97 03/15/19 05:49 03/15/19 05:49 03/15/19 05:49 03/15/19 05:49 03/15/19 08:00 Temperature -Last 24 Hours Temperature 97.9 F Temperature 98.0 F Temperature 98.1 F Temperature 98.3 F - Labs CBC & Chem 7: 03/14/19 10:04 03/14/19 10:04
[2019-03-15] MEDS ORDERED: HEPARIN 10,000 UNITS/10 ML VIAL ONE (12:10)
[2019-03-15] MEDS ORDERED: HEPARIN/NS 5000 UNIT/500ML 500 ML IR ONE (12:10)
[2019-03-15] MEDS ORDERED: LIDOCAINE 1%/EPINEPHRINE 1:100,000 VIAL (20 ML) INFILTRATI ONE (12:10)
--- NOTE | 2019-03-15 12:26 | Discharge Summary ---
Providers - Providers Date of Admission: 03/10/19 07:27 Date of discharge: 03/15/19 Attending physician: JOE THOMAS 03/10/19 14:44 Consult to Physician [CONS] Routine Comment: Talked to . Consulting Provider: RORO ZAFAR Physician Instructions: Reason For Exam: ESRD 03/12/19 11:15 Consult to Physician [CONS] Routine Comment: Consulting Provider: CASSIE MORENO Physician Instructions: Reason For Exam: bacteremia 03/13/19 11:03 Consult to Physician [CONS] Routine Comment: Consulting Provider: MICHELLE HDEZ Physician Instructions: Reason For Exam: perm cath removal and replacement 03/14/19 13:41 Consult to Case Management [CONS] Routine Services Needed at Discharge: Home Health Services Notified:: cm Additional Physician Instructions: [facility] M: [phone] O: [phone] F: [phone] OUTPATIENT PARENTERAL ANTIBIOTIC THERAPY ORDERS Diagnosis: MRSA bacteremia Antimicrobial administration: vancomycin 1.25g post-HD. Stop date: 04/10/2019 Line: dialysis line Lab monitoring: CBC with diff, BUN, creatinine, LFTs, vancomycin trough once per week preferably on Thursday or Thursday mornings. Please fax results to [phone] and call [phone] Beth 03/14/2019 Primary care physician: [employer] Hospitalization Condition: Stable Pertinent studies: CXR: no infiltrates Hospital course: 23 y/o male with h/o IgA nephropathy progressed to ESRD presented for need for HD and fever. He was admitted for further Mx and evaluation. 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 Need renally adjusted vancomycin during HD till 04/10/2019. Disposition: DC-01 TO HOME OR SELFCARE Time spent for discharge: 34 minutes Core Measure Documentation - Palliative Care Palliative Care/ Comfort Measures: Not Applicable - Core Measures Any of the following diagnoses?: none Exam - Physical Exam Narrative exam: - Constitutional General appearance: Present: no acute distress, well-nourished - EENT Eyes: PERRL, EOM intact ENT: hearing intact, clear oral mucosa Ears: bilateral: normal - Neck Neck: supple, normal ROM - Respiratory Respiratory effort: normal Respiratory: bilateral: CTA - Cardiovascular Rhythm: regular Heart Sounds: Present: S1 & S2. Absent: gallop, rub Extremities: pulses intact, No edema, normal color, Full ROM - Gastrointestinal General gastrointestinal: Present: soft, non-tender, non-distended, normal bowel sounds - Integumentary Integumentary: clear, warm, dry - Musculoskeletal Musculoskeletal: 1, strength equal bilaterally - Neurologic Neurologic: moves all extremities - Psychiatric Psychiatric: memory intact, appropriate mood/affect, intact judgment & insight - Constitutional Vitals: Temp Pulse Resp BP Pulse Ox 97.9 F 66 24 122/82 97 03/15/19 05:49 03/15/19 05:49 03/15/19 05:49 03/15/19 05:49 03/15/19 08:00 Plan Activity: advance as tolerated Weight Bearing Status: Weight Bear as Tolerated Diet: renal Additional Instructions: f/u at [place] HD center to complete iv vancomycin 1gm dose post HD till 04/10/2019 Follow up with: PRIMARY MD RUBINA [Primary Care Provider] - 7 Days
[2019-03-15] MEDS ORDERED: SODIUM CHLORIDE 0.9% 250ML 250 ML ONE (13:02)
[2019-03-15] MEDS: MIDAZOLAM 2 MG/2 ML INJ ONE ×2 (13:25→13:28)
[2019-03-15] MEDS: fentaNYL 100 MCG/2 ML INJ ONE ×2 (13:25→13:28)
[2019-03-15] MEDS ORDERED: fentaNYL 100 MCG/2 ML INJ ONE (13:34)
[2019-03-15] MEDS ORDERED: MIDAZOLAM 2 MG/2 ML INJ ONE (13:34)
--- NOTE | 2019-03-15 15:37 | Operative Report ---
Operative Report Operative Report: EXAM: 1. Ultrasound-guided puncture of the left internal jugular vein 2. Fluoroscopic-guided placement of a left internal jugular tunneled cuffed hemodialysis catheter. DATE: 03/15/19 INDICATION: ESRD with IGA nephropathy. MEDICATIONS: Please see nursing report for full details. DEVICES: 23 cm tip to cuff 15 Fr dual lumen hemodialysis catheter [employer] ASSEMBLER: MICHELLE HENDERSON MD CONTRAST: None PROCEDURE: The risks, benefits, and alternatives were discussed and informed consent was obtained. The patient was transported to the angiography suite in satisfactory/stable condition and was transported onto the angiography table. The patient's left internal jugular vein was assessed with ultrasound and determined to be patent prior to procedure. The patient was prepped and draped in a sterile fashion. The puncture site was anesthetized. Under sonographic guidance, the left internal jugular vein was punctured with a 21-gauge micropuncture needle and a 0.018 inch wire was advanced into the inferior vena cava. The micropuncture needle was exchanged for a transitional dilator and the wire was retracted into the right atrium to tavon intravascular distance. The wire and inner dilator were removed. 0.035 Amplatz inch wire was advanced through the transitional dilator into the inferior vena cava. A suitable exit site was identified on the patient's chest inferior and lateral to the venotomy. The site was anesthetized with local anesthetic and the track was anesthetized. Dermatotomy was made. The PermCath was attached to the tunneling device and tunneled between the dermatotomy to the venotomy. Over the 0.035 inch wire, serial dilatation was performed with ultimate placement of a peel-away sheath. The catheter was advanced through the peel- away sheath after the wire was removed and positioned centrally under fluoroscopic guidance. The peel-away sheath was removed. 4-0 Vicryl suture was used to close the venotomy and Dermabond was then applied. 2-0 Ethilon suture was used to secure the catheter at the dermatotomy. The catheter was charged with heparin 1000 units/mL of the space. The patient was transferred from the angiography suite back to the floor in stable condition. FINDINGS: 1. Excellent flow was obtained through the dialysis catheter with 20 mL syringes. 2. The catheter tip is in the right atrium. IMPRESSION: 1. Successful ultrasound and fluoroscopically guided placement of a left internal jugular tunneled cuffed hemodialysis catheter.
[2019-03-15] MEDS ORDERED: VANCOMYCIN/NS 1 GM/250 ML 1 GM/250 ML BAG IV SCH (18:00)
[2019-03-15 22:57] VITALS: BP 116/72
== END 2019-03-15 23:05 | disposition home or self-care (01) | DRG 871 ==
LOC: ED 04:27 → 3A 07:27 → MERGE 07:27
PROVIDERS: ADMIT Internal Medicine Geriatric Medicine; ATTEND Internal Medicine
PROC: 5A1D70Z Performance of Urinary Filtration, Intermittent, Less than 6 Hours Per Day (ICD-10-PCS; principal; 2019-03-10)
PROC: 5A1D70Z Performance of Urinary Filtration, Intermittent, Less than 6 Hours Per Day (ICD-10-PCS; 2019-03-12)
PROC: 0JPT3XZ Removal of Tunneled Vascular Access Device from Trunk Subcutaneous Tissue and Fascia, Percutaneous Approach (ICD-10-PCS; 2019-03-13)
PROC: 5A1D70Z Performance of Urinary Filtration, Intermittent, Less than 6 Hours Per Day (ICD-10-PCS; 2019-03-15)
PROC: 0JH63XZ Insertion of Tunneled Vascular Access Device into Chest Subcutaneous Tissue and Fascia, Percutaneous Approach (ICD-10-PCS; 2019-03-15)
PROC: 02H633Z Insertion of Infusion Device into Right Atrium, Percutaneous Approach (ICD-10-PCS; 2019-03-15)
PROC: B5181ZA Fluoroscopy of Superior Vena Cava using Low Osmolar Contrast, Guidance (ICD-10-PCS; 2019-03-15)
PROC: B548ZZA Ultrasonography of Superior Vena Cava, Guidance (ICD-10-PCS; 2019-03-15)
DX: A41.02 Sepsis due to Methicillin resistant Staphylococcus aureus (principal); N18.6 End stage renal disease; E87.1 Hypo-osmolality and hyponatremia; N17.9 Acute kidney failure, unspecified; I12.0 Hypertensive chronic kidney disease with stage 5 chronic kidney disease or end stage renal disease; R65.10 Systemic inflammatory response syndrome (SIRS) of non-infectious origin without acute organ dysfunction; D69.6 Thrombocytopenia, unspecified; E11.22 Type 2 diabetes mellitus with diabetic chronic kidney disease; D63.1 Anemia in chronic kidney disease; Z99.2 Dependence on renal dialysis
CPT/HCPCS: 36415; 36558; 71046; 76937; 77001; 80048; 80053; 80074; 80202; 81001; 85007; 85025; 85027; 87040; 87076; 87116; 87186; 93306; 96360; G0378; C1750; C1769; J1644; J2250; J3010; J3370; J7030; J7040; J7050